=== PATIENT | male | born 1940 | race Caucasian/White ===

== ENCOUNTER → 2018-11-09 08:27 | Outpatient (CLI) | payer MEDICARE, OTHER, SELFPAY ==
[2018-11-09 10:49] LABS: Absolute Lymphocyte Count 1.72 X10^3/ul (0.83-4.51); Absolute Neutrophil Count 3.8 X10^3/uL (2.0-7.7); Basophil# 0.03 X10^3/uL; Basophil% 0.5 % (0-1); Eosinophil# 0.11 X10^3/uL; Eosinophils% 1.8 % (0-5); Hematocrit 43.7 % (40-54); Hemoglobin 14.6 g/dl (13.0-16.5); Lymphocyte # 1.72 X10^3/ul (4.0); Lymphocyte % 27.7 % (19-41); Mean Corp Hgb Conc 33.4 g/gl (32-36); Mean Corpuscular Volume 89.7 fL (80-94); Mean Platelet Vol. 9.9 fl (6.2-12.0); Monocyte# 0.54 X10^3/uL; Monocyte% 8.7 % (0-10); Neutrophil # 3.79 X10^3/uL (2.7-7.7); Neutrophil % 61.1 % (47-70); Platelet Count 221 K/mm3 (150-450); RBC Distribution Width CV 13.3 % (11.6-14.6); RBC Distribution Width SD 43.6 fl (35.1-43.9); Red Blood Count 4.87 M/mm3 (4.6-6.2); White Blood Count 6.2 K/mm3 (4.4-11.0)
[2018-11-09 10:50] LABS: POSITIVE COUNT NO; POSITIVE DIFFERENTIAL NO; POSITIVE MORPHOLOGY NO
[2018-11-09 10:57] LABS: Erythrocyte Sedimentation Rate 9 mm/hr (0-20)
[2018-11-09 11:07] LABS: Anion Gap 8 (5-15); BUN 19 mg/dL (7-18); Calcium,Total 9.2 mg/dL (8.5-10.1); Chloride 103 mmol/L (98-107); Creatinine, Serum 1.12 mg/dL (0.70-1.30); EST Glomerular Filtration Rate 68 mL/min (>60); Est Glom Filt Rate - Afr Amer 82 mL/min (>60); Glucose 153 mg/dL (74-106); Sodium Level 141 mmol/L (136-145)
[2018-11-09 11:08] LABS: Hemoglobin A1c 7.8 % (4.2-6.3)
--- OUTSIDE RECORDS SUMMARY | 2018-12-26 05:35 | XMS RPT_ITS ---
:1940 Author Organization OHIP Care Team Providers Name Role Phone Robin Kitchen Attending Unavailable Robin Kitchen Referring Unavailable Robin Kitchen Primary Care Unavailable PROBLEMS PROBLEMS No Problem Records FoundPROCEDURES PROCEDURES No Procedure Records FoundRESULTS RESULTS CBC W/DIFF, AUTOMATED Collected: 11/09/2018 Status: F Source: [place] 8:34 AM [facility] REPOSITORY TYPE CODE TESTS RESULT OUT OF RANGE REFERENCE UNITS LAB L100.1000 4.4-11.0 K/mm3 Normal WBC 6.2 LAB L100.1200 4.6-6.2 M/mm3 Normal RBC 4.87 LAB L100.1300 13.0-16.5 g/dl Normal HGB 14.6 LAB L100.1400 40-54 % Normal HCT 43.7 LAB L100.1500 80-94 fL Normal MCV 89.7 LAB L100.1600 27.0-32.0 pg Normal MCH 30.0 LAB L100.1700 32-36 g/gl Normal MCHC 33.4 LAB L100.1810 11.6-14.6 % Normal RDW CV 13.3 LAB L100.1820 35.1-43.9 fl Normal RDW SD 43.6 LAB L100.1900 150-450 K/mm3 Normal PLT 221 LAB L100.2000 6.2-12.0 fl Normal MPV 9.9 LAB L100.2100 47-70 % Normal NEUT% 61.1 LAB L100.2200 19-41 % Normal LY% 27.7 LAB L100.2300 0-10 % Normal MONO% 8.7 LAB L100.2400 0-5 % Normal EO% 1.8 LAB L100.2500 0-1 % Normal BASO% 0.5 LAB L100.2550 0.0-0.9 % Normal IM GRAN % 0.200 Result Comment: IG% - Immature Granulocytes (promyelocytes, myelocytes and metamyelocytes) > 1% indicates that a LEFT SHIFT is Present. LAB L100.2620 2.0-7.7 X10 3/uL Normal Absolute Neut 3.8 LAB L100.2720 0.83-4.51 X10 3/ul Normal Absolute Lymph 1.72 Performed By: #### L100.0100 #### [facility] [address] [place], [address] ERYTHROCYTE SED RATE Collected: 11/09/2018 Status: F Source: [place] 8:34 AM [facility] REPOSITORY TYPE CODE TESTS RESULT OUT OF RANGE REFERENCE UNITS LAB L102.0000 0-20 mm/hr Normal SED RATE 9 Performed By: #### L101.9900 #### [facility] [address] [place], [address] BASIC METABOLIC Collected: 11/09/2018 Status: F Source: [place] PROFILE (BMP) 8:34 AM [facility] REPOSITORY TYPE CODE TESTS RESULT OUT OF RANGE REFERENCE UNITS LAB L501.0100 74-106 mg/dL High GLU 153 Result Comment: Fasting Glucose result greater than or equal to 126 mg/dL suggests DIABETES MELLITUS per A.D.A. criteria. Please note revised GLUCOSE reference range effective 2018. LAB L501.1000 7-18 mg/dL High BUN 19 LAB L501.1100 0.70-1.30 mg/dL Normal CREAT,SERUM 1.12 Result Comment: The validity of the calculated GFR AND GFRAA in patients over 70 years has not been determined. Clinical correlation is essential. LAB L501.1110 >60 mL/min Normal EST GFR 68 Result Comment: Non- GFR Calc LAB L501.1115 >60 mL/min Normal EST GFR - AA 82 Result Comment: GFR Calc LAB L501.1300 10-20 RATIO Normal BUN/CRE 17.0 LAB L501.2200 8.5-10.1 mg/dL CA Normal 9.2 LAB L501.5300 136-145 mmol/L NA Normal 141 LAB L501.5600 3.5-5.1 mmol/L K Normal 4.0 LAB L501.5900 98-107 mmol/L CL Normal 103 LAB L501.6100 21.0-32.0 mmol/L Normal CO2 30.0 LAB L501.6200 5-15 Normal GAP 8 Performed By: #### L500.2500 #### [facility] [address] [place], [address] HEMOGLOBIN A1C Collected: 11/09/2018 Status: F Source: TRIVOLI 8:34 AM [facility] REPOSIT[facility] TYPE CODE TESTS RESULT OUT OF RANGE REFERENCE UNITS LAB L501.9985 4.2-6.3 % High HGB A1C 7.8 Performed By: #### L501.9985 #### [facility] [address] [place], [address] ALLERGIES ALLERGIES DATE TYPE / CODE NAME / CODE REACTION SEVERITY SOURCE 08/17/2017 Drug codeine/F006 Hives Unknown [facility] Allergy/4160 029984(Formerly [facility] [address](SNOMED M) Repository CT) ENCOUNTERS ENCOUNTERS ADMIT/DISCHARGE ACCOUNT ADMITTING ENCOUNTER LOCATION SOURCE NUMBER CLASS 11/09/2018 [id number] Ambulatory [facility] 5 [facility] ing:MTLAB Repository PAYERS PAYERS ENCOUNTER GUARANTOR PAYER SUBSCRIBER SOURCE 11/09/2018 UBALDO Moran Primary UBALDO Moran GWINDOB: [place] [id number] Insurance:[facility]IC[facility] [id number] BPolicy Number: [place], [place] [id number] Repository [id number]: 330) Date:2018-11-09 [phone] () 11/09/2018 Secondary UBALDO Moran GWINDOB: [place] Insurance:HUMANA [id number] Number: Repository [id number] Date:[id number] [address]GL: 11/09/2018 Tertiary NOT GIVENUNK [place] Insurance:SELF PAY [facility] Number: Effective Repository Date:2018-11-09
--- OUTSIDE RECORDS SUMMARY | 2018-12-26 06:36 | XMS RPT_ITS ---
:1940 Author Organization OHIP Care Team Providers Name Role Phone Robin Kitchen Attending Unavailable Robin Kitchen Referring Unavailable Robin Kitchen Primary Care Unavailable PROBLEMS PROBLEMS No Problem Records FoundPROCEDURES PROCEDURES No Procedure Records FoundRESULTS RESULTS CBC W/DIFF, AUTOMATED Collected: 11/09/2018 Status: F Source: RONNELL 8:34 AM [facility] REPOSITORY TYPE CODE TESTS RESULT OUT [...] Lymph 1.72 Performed By: #### L100.0100 #### [facility] [address] [place], [address] ERYTHROCYTE SED RATE Collected: 11/09/2018 Status: F Source: [place] 8:34 AM [facility] REPOSITORY TYPE CODE TESTS RESULT OUT OF RANGE REFERENCE UNITS LAB L102.0000 0-20 mm/hr Normal SED RATE 9 Performed By: #### L101.9900 #### [facility] [address] [place], [address] BASIC METABOLIC Collected: 11/09/2018 Status: F Source: [place] PROFILE (BMP) 8:34 AM [facility] REPOSITORY TYPE CODE TESTS RESULT OUT [...] GAP 8 Performed By: #### L500.2500 #### [facility] [address] [place], [address] HEMOGLOBIN A1C Collected: 11/09/2018 Status: F Source: [place] 8:34 AM [facility] REPOSITORY TYPE CODE TESTS RESULT OUT OF RANGE REFERENCE UNITS LAB L501.9985 4.2-6.3 % High HGB A1C 7.8 Performed By: #### L501.9985 #### [facility] [address] [place], [address] ALLERGIES ALLERGIES DATE TYPE / CODE NAME / CODE REACTION SEVERITY SOURCE 08/17/2017 Drug codeine/F006 Hives Unknown [facility] Allergy/4160 [id number]([facility] [address](SNOMED M) Repository CT) ENCOUNTERS ENCOUNTERS ADMIT/DISCHARGE ACCOUNT ADMITTING ENCOUNTER LOCATION SOURCE NUMBER CLASS 11/09/2018 [id number] Ambulatory [facility] 5 [facility] ing:MTLAB Repository PAYERS PAYERS ENCOUNTER GUARANTOR PAYER SUBSCRIBER SOURCE 11/09/2018 UBALDO Moran Primary UBALDO Moran GWINDOB: [place] [id number] Insurance:MEDICARE [id number] PART A BPolicy Number: [place], [place] [id number] Repository [id number]: 330) Date:2018-11-09 [phone] () 11/09/2018 Secondary UBALDO Moran GWINDOB: [place] Insurance:HUMANA [id number] Number: Repository [id number] Date:[id number] [address]TW: 11/09/2018 Tertiary NOT GIVENUNK [place] Insurance:SELF PAY [facility] Number: Effective Repository Date:2018-11-09
== END ==
PROVIDERS: Family Provider Family Medicine; PCP Family Medicine; Referring Provider Family Medicine; Visit Provider Family Medicine
DX: E11.9 Type 2 diabetes mellitus without complications (principal)
CPT/HCPCS: 36415; 80048; 83036; 85025; 85652

== ENCOUNTER → 2019-08-15 | Outpatient (CLI) | payer MEDICARE, OTHER, SELFPAY ==
[2019-08-15 10:45] LABS: Cholesterol 184 mg/dL (200); Glucose 153 mg/dL (74-106); High Density Lipoprotein 38 mg/dL; PSA,Total - Annual Screen 0.47 ng/mL (0.00-4.00); Triglycerides 201 mg/dL; Very Low Density Lipoprotein 40 mg/dL (5-40)
[2019-08-15 11:01] LABS: Hemoglobin A1c 8.1 % (4.2-6.3)
== END | disposition home or self-care (01) ==
LOC: MFPLAB 08:12
PROVIDERS: Family Provider Family Medicine; PCP Family Medicine; Visit Provider Family Medicine
DX: E11.9 Type 2 diabetes mellitus without complications (principal); Z12.5 Encounter for screening for malignant neoplasm of prostate
CPT/HCPCS: 36415; 80061; 82947; 83036; 84153; G0103

== ENCOUNTER → 2019-11-11 10:32 | Outpatient (CLI) | payer MEDICARE, OTHER, SELFPAY ==
[2017-08-19 12:33] VITALS: BMI 31.6
[2019-11-11 12:47] LABS: Anion Gap 7 (5-15); BUN 18 mg/dL (7-18); BUN/Creat Ratio 14.3 RATIO (10-20); Calcium,Total 9.1 mg/dL (8.5-10.1); Chloride 101 mmol/L (98-107); Creatinine, Serum 1.26 mg/dL (0.70-1.30); EST Glomerular Filtration Rate 59 mL/min (>60); Est Glom Filt Rate - Afr Amer 71 mL/min (>60); Glucose 228 mg/dL (74-106); Potassium 3.9 mmol/L (3.5-5.1); Sodium Level 135 mmol/L (136-145)
== END ==
PROVIDERS: Family Provider Family Medicine; PCP Family Medicine; Referring Provider Nurse Practitioner Adult Health; Visit Provider Nurse Practitioner Adult Health
DX: I10 Essential (primary) hypertension (principal)
CPT/HCPCS: 36415; 80048

== ENCOUNTER → 2020-01-04 08:03 | Outpatient (CLI) | payer MEDICARE, OTHER, SELFPAY ==
[2017-08-19 12:33] VITALS: BMI 31.6
[2020-01-04 08:11] LABS: Mucous, Urine 0 SEEN /hpf (<or=2+); Red Blood Cells-Urine 0 SEEN /hpf (0-5)
[2020-01-04 10:07] LABS: Absolute Lymphocyte Count 1.43 X10^3/uL (0.83-4.51); Absolute Neutrophil Count 3.3 X10^3/uL (2.0-7.7); Basophil# 0.05 X10^3/uL; Basophil% 0.9 % (0-1); Eosinophil# 0.08 X10^3/uL; Eosinophils% 1.5 % (0-5); Hematocrit 42.5 % (40-54); Hemoglobin 14.6 g/dL (13.0-16.5); Lymphocyte # 1.43 X10^3/ul (4.0); Lymphocyte % 26.4 % (19-41); Mean Corp Hgb Conc 34.4 g/dL (32-36); Mean Corpuscular Hgb 30.5 pg (27.0-32.0); Mean Corpuscular Volume 88.9 fL (80-94); Mean Platelet Vol. 9.7 fl (6.2-12.0); Monocyte# 0.49 X10^3/uL; Monocyte% 9.1 % (0-10); NRBC Flagged by Analyzer 0 % (0-5); Neutrophil # 3.32 X10^3/uL (2.7-7.7); Neutrophil % 61.4 % (47-70); Platelet Count 220 K/mm3 (150-450); RBC Distribution Width CV 12.7 % (11.6-14.6); RBC Distribution Width SD 41.4 fl (35.1-43.9); Red Blood Count 4.78 M/mm3 (4.6-6.2); White Blood Count 5.4 K/mm3 (4.4-11.0)
[2020-01-04 10:21] LABS: Color, Urine Yellow (Yellow); Glucose, Dipstick Normal (Normal); Ketone-Dipstick Negative (Negative); Leukocyte Esterase-Dipstick Negative /ul (Negative); Nitrite-Dipstick Negative (Negative); Occult Blood-Urine Negative /ul (Negative); Protein-Dipstick 30 mg/dl (Negative); Specific Gravity, Urine 1.015 (1.002-1.030); Urine Bilirubin Dipstick Negative (Negative); Urine Clarity Sl. Cloudy (Clear); Urine Urobilinogen Normal (Normal)
[2020-01-04 10:27] LABS: Vitamin D,25 Hydroxy 21.9 ng/mL (29.95-100.01)
[2020-01-04 10:31] LABS: ALB/GLOB Ratio 1.1 RATIO (0.9-2.4); AST(SGOT) 17 U/L (15-37); Alanine Aminotransfer ALT/SGPT 29 U/L (16-61); Albumin, Serum 3.7 g/dL (3.2-5.0); Alkaline Phosphatase 63 U/L (45-117); Anion Gap 5 (5-15); BUN 19 mg/dL (7-18); BUN/Creat Ratio 16.5 RATIO (10-20); Calcium,Total 9.2 mg/dL (8.5-10.1); Chloride 104 mmol/L (98-107); Cholesterol 166 mg/dL (200); Creatinine, Serum 1.15 mg/dL (0.70-1.30); EST Glomerular Filtration Rate 65 mL/min (>60); Est Glom Filt Rate - Afr Amer 79 mL/min (>60); Globulin 3.4 g/dL (2.2-4.2); Glucose 141 mg/dL (74-106); High Density Lipoprotein 34 mg/dL; Magnesium 2.1 mg/dL (1.6-2.6); Protein, Total 7.1 g/dL (6.4-8.2); Sodium Level 138 mmol/L (136-145); Thyroid Stim Hormone (TSH) 3.72 uIU/mL (0.358-3.74); Triglycerides 245 mg/dL; Uric Acid 6.9 mg/dL (3.5-7.2); Very Low Density Lipoprotein 49 mg/dL (5-40)
[2020-01-04 10:32] LABS: Bacteria RARE /hpf (None Seen); Squamous Epithelial Cells - UA 0-5 SEEN /hpf (0-5); White Blood Cells 0-5 SEEN /hpf (0-5)
[2020-01-04 10:35] LABS: Hemoglobin A1c 8.1 % (4.2-6.3)
[2020-01-04 11:33] LABS: Microalbumin:Creatinine Ratio 88.5 mg/g CRE (<30 mg/g CRE)
== END ==
PROVIDERS: PCP Family Medicine; Referring Provider Family Medicine; Visit Provider Family Medicine
DX: I10 Essential (primary) hypertension (principal); E11.9 Type 2 diabetes mellitus without complications; E55.9 Vitamin D deficiency, unspecified; M10.9 Gout, unspecified
CPT/HCPCS: 36415; 80053; 80061; 81001; 82043; 82306; 82570; 83036; 83735; 84443; 84550; 85025

== ENCOUNTER → 2020-01-25 08:22 | Outpatient (CLI) | payer MEDICARE, OTHER, SELFPAY ==
--- NOTE | 2020-01-25 08:24 | US_ITS ---
STUDY: THYROID ULTRASOUND REASON FOR EXAM: Male, 79 years old. THYROMEGALY TECHNIQUE: Ultrasound evaluation of the thyroid was performed with real-time and static churchill-scale imaging. COMPARISON: None. FINDINGS: RIGHT LOBE: The right lobe of the thyroid gland measures 4.4 x 1.7 x 1.3 cm. There is a heterogeneous echotexture. There are 3 complex cysts of the lower pole measuring 6 x 6 x 5 mm, 4 x 2 x 2 mm, and 3 x 4 x 2 mm respectively. LEFT LOBE: The left lobe of the thyroid gland measures 4.4 x 1.6 x 1.4 cm. There is a heterogeneous echotexture. There are 3 complex cysts of the mid and upper pole of the left thyroid lobe, measuring 7 x 6 x 5 mm, 2 x 2 x 2 mm, and 6 x 6 x 5 mm respectively. ISTHMUS: The isthmus measures 2 mm . The regional lymph nodes are normal. US/Thyroid IMPRESSION: Bilateral complex cysts as detailed above. Electronically Signed: Shemar Forrest MD at 17:00 EST , Service support ,
== END ==
PROVIDERS: PCP Family Medicine; Referring Provider Family Medicine; Visit Provider Family Medicine
DX: E01.0 Iodine-deficiency related diffuse (endemic) goiter (principal)
CPT/HCPCS: 76536

== ENCOUNTER → 2020-04-10 | Outpatient (CLI) | payer MEDICARE, OTHER, SELFPAY ==
[2017-08-19 12:33] VITALS: BMI 31.6
[2020-04-10 10:15] LABS: Vitamin D,25 Hydroxy 24.9 ng/mL
[2020-04-10 10:18] LABS: Hemoglobin A1c 7.3 % (4.2-6.3)
[2020-04-10 10:35] LABS: ALB/GLOB Ratio 1.1 RATIO (0.9-2.4); AST(SGOT) 17 U/L (15-37); Alanine Aminotransfer ALT/SGPT 26 U/L (16-61); Albumin, Serum 3.7 g/dL (3.2-5.0); Alkaline Phosphatase 60 U/L (45-117); Anion Gap 8 (5-15); BUN 26 mg/dL (7-18); BUN/Creat Ratio 22.4 RATIO (10-20); Calcium,Total 9.3 mg/dL (8.5-10.1); Chloride 108 mmol/L (98-107); Cholesterol 173 mg/dL (200); Creatinine, Serum 1.16 mg/dL (0.70-1.30); EST Glomerular Filtration Rate 65 mL/min (>60); Est Glom Filt Rate - Afr Amer 78 mL/min (>60); Globulin 3.4 g/dL (2.2-4.2); Glucose 138 mg/dL (74-106); High Density Lipoprotein 35 mg/dL; Potassium 3.6 mmol/L (3.5-5.1); Protein, Total 7.1 g/dL (6.4-8.2); Sodium Level 142 mmol/L (136-145); Triglycerides 222 mg/dL; Uric Acid 8.7 mg/dL (3.5-7.2); Very Low Density Lipoprotein 44 mg/dL (5-40)
[2020-04-10 10:51] LABS: Microalbumin,Random Urine 57.7 mg/L (NO RANGE EST.); Microalbumin:Creatinine Ratio 42.1 mg/g CRE (<30 mg/g CRE)
== END | disposition home or self-care (01) ==
LOC: MTLAB 07:37
PROVIDERS: PCP Family Medicine; Referring Provider Family Medicine; Visit Provider Family Medicine
DX: E11.9 Type 2 diabetes mellitus without complications (principal); M10.9 Gout, unspecified; R80.9 Proteinuria, unspecified; E55.9 Vitamin D deficiency, unspecified; I10 Essential (primary) hypertension
CPT/HCPCS: 36415; 80053; 80061; 82043; 82306; 82570; 83036; 84550

== ENCOUNTER 2020-07-18 08:37 | Day surgery (SDC) | payer MEDICARE, OTHER, SELFPAY ==
[2020-07-05 13:57] VITALS: BMI 31.6
[2020-07-18 08:50] LABS: Bedside Glucose 128 mg/dL (70-110)
[2020-07-18 08:51] VITALS: BP 157/95; PULSE 65; RESP 16; TEMP 36.4; BMI 28.7
[2020-07-18] MEDS: Lactated Ringers 1,000 ML 100 ML IV (08:51)
--- NOTE | 2020-07-18 09:43 | PCM.HP.BLA ---
History and Physical Date of Admission: 07/18/20 [facility] [address] [place] [address] OFFICE VISIT Date of Service: 07/05/20 MR#: [id number] Acct: [id number] Name: UBALDO HANEY Rep #: [id number] : 1940 Provider: Dr. Irineo Crandall MD Age/Sex: 80/M Location: [facility] Status: Signed Intake Vital Signs 07/05/20 BMI 31.6 07/05/20 Height 5 ft 10 in 07/05/20 Weight: 203 lb 7 oz 07/05/20 BMI 29.2 07/05/20 BP 117/73 07/05/20 Blood Pressure Location Rt brachial 07/05/20 Position Sitting 07/05/20 Respiration 20 H 07/05/20 Pulse 71 07/05/20 Temp 97.3 F L 07/05/20 Temp Source Temporal 07/05/20 Pulse Oximetry (%) 97 07/05/20 Oxygen Delivery Method room air Intake Visit Reasons: CSCOPE Chief Complaint: COLONOSCOPY/FAMILY HISTORY Diagnostic Cardiac Sonographer Required: No Is patient in pain?: No Allergies codeine Allergy (Verified 07/09/20 12:03) Hives Medications Metoprolol(XL)Succ [Toprol Xl (Beta Jossy)] 100 mg PO DAILY 09/21/16 [History Confirmed 07/09/20] Triamterene/Hydrochlorothiazid [Triamterene-Hctz 37.5-25 mg Tb] 1 tab PO DAILY 09/21/16 [History Confirmed 07/09/20] metFORMIN HCl [Glucophage] 1,000 mg PO BID 09/21/16 [History Confirmed 07/09/20] cholecalciferol (vitamin D3) 50 mcg (2,000 unit) capsule 50 mcg PO DAILY 07/05/20 [History Confirmed 07/09/20] lisinopril 20 mg tablet 20 mg PO DAILY 07/05/20 [History Confirmed 07/09/20] COUNT INCLUDES THE [facility] Medical History Diabetes (Acute) Multiple thyroid nodules (Acute) MVP (mitral valve prolapse) (Acute) Gout (Acute) Vitamin D deficiency (Acute) History of renal stone (Chronic) HTN (hypertension) (Chronic) History of revision of total replacement of left hip joint (Acute) Surgical History 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 Social History (Updated 07/18/20 @ 00:[address] Irineo Crandall MD) Smoking Status: Never smoker HPI HPI HPI: UBALDO HANEY, is a 80 M who presents to the office today for HPI HPI Surgical H&P: Yes HPI: UBALDO HANEY, is a 80 M who presents to the office today for Forearm evaluation for colonoscopy. Patient has never had a colonoscopy. He notes he has occasional diarrhea when he eats spicy foods he had a father who had colon cancer. He is not having any change in his bowel or bladder habits. ROS General General: No weight change, appetite, fatigue, colon cancer, breast cancer or weakness HEENT HEENT: No difficulty swallowing, eye injury, eye surgery, swollen glands or hoarseness Endo Endocrine: Yes diabetes mellitus; no thyroid disease, thyroid cancer, Hair loss, heat intolerance or cold intolerance Musc Musculoskeletal: Yes arthritis and gout; no back problems, rheumatoid arthritis or joint pain Cardio Cardiovascular: Yes atrial fibrillation and high blood pressure; no murmur, pacemaker, heart disease, heart attack, heart stent, palpitations, shortness of breat with exertion or chest pain Psych Psychiatric: No depression, anxiety or hearing voices Resp Respiratory: No shortness of breath, No sleep apnea, Yes cough, No COPD, No asthma, No emphysema, No wheezing Gastro Gastrointestinal: No abdominal pain, No nausea or vomiting, No diarrhea, No constipation, No blood in stool, No acid reflux, No hemorrhoids, No ulcers, No gallbladder problem, No black,tarry stools Mina Hematologic: No blood thinners, No blood disorders, No bleeding, No anemia, No blood clots Neuro Neurologic: No weakness Exam Const General: no acute distress, well developed, well hydrated Orientation: oriented to person, oriented to place, oriented to time [facility] Head: normocephalic, atraumatic Ears: external ears normal Mouth: moist mucous membranes Eyes Sclera: sclerae normal Pupils: normal by confrontation Neck Neck: no lymphadenopathy noted Neck mass: No Thyroid: thyroid normal, symmetrical Chest Chest palpation & inspection: normal inspection of the chest Resp Effort & Inspection: normal respiratory effort Auscultation: clear to auscultation bilaterally Percussion: percussion normal Cardio Rate: regular rate Rhythm: regular rhythm Heart Sounds: no murmurs GI Palpation: soft, no hepatosplenomegaly, no masses, nontender Rectal Exam: other Other: Rectal exam deferred. Extrem General: normal to inspection, no clubbing, cyanosis or edema Assessment & Plan Problems 1. Screening for colon cancer Z12.11 Plan I have discussed the above with the patient. I have offered the patient colonoscopy for evaluation. I have explained the risks/benefits of the procedure and described the procedure. I have discussed the risks with the patient, including but not limited to: infection, bleeding, perforation of the GI tract requiring emergency surgery, inability to complete the procedure, injury to any internal organs, complications of anesthesia, etc. - the patient understands and agrees to proceed. I have answered all the patient's questions to the patient's satisfaction and the patient has no further questions. The patient has been given instructions for the colon cleansing preparation. Orders Orders: Colonoscopy 07/05/20 Z12.11 Coding Level of Care Code Off vis,new,level 3 Diagnoses Screening for colon cancer Z12.11 COVID (Procedure Consent) Procedure Criteria Procedure Criteria: Yes Elective The surgeon/proceduralist and patient have discussed in detail the risk of exposure to and/or potential harm posed by the COVID-19 virus with having a surgery/procedure at this time versus the risk of? delaying the surgery/procedure. It is not possible to know either the risk of delaying the surgery or procedure or chance of getting an infection with perfect accuracy, but a joint decision was made between the patient and the surgeon/proceduralist ?to proceed at this time with the scheduled surgery/procedure as indicated on the consent form. 07/18/20 0046 <Electronically signed by Irineo Crandall MD> Date Irineo Viera Signature: Date (if applicable) CC: Dr. Robin Hinson MD ~ I have re-examined the patient. There are no clinical changes since date of exam.
[2020-07-18 10:10] VITALS: BP 123/81; BP 157/95; PULSE 67; RESP 16; TEMP 36.6; O2SAT 97
--- NOTE | 2020-07-18 10:12 | OP.CCLET_ITS ---
07/18/2020 Robin Hinson [address] [place] [address] Re : Colonoscopy procedure for John Art Dear Dr. Hinson This procedure was performed on Saturday, July 18, 2020. My impressions and recommendations are as follows: Impressions : - Diverticulosis in the sigmoid colon and in the descending colon. No specimens collected. - Non-bleeding internal hemorrhoids. - The examination was otherwise normal. Recommendations : - Discharge patient to home. - Resume previous diet. - Continue present medications. - Return to primary care physician (date not yet determined). - No repeat colonoscopy due to current age (66 years or older). My findings are described in the full procedure note, which is enclosed. If I can be of further assistance, please feel free to contact me at Doctor phone number(s): , Fax: [phone], Work: . Sincerely, MD Irineo Casey MD 07/18/2020 10:11:45 AM This report has been signed electronically.
--- NOTE | 2020-07-18 10:12 | OP.COLON_ITS ---
Patient Name: John Art Procedure Date: 07/18/2020 9:40 AM Date of : 1940 Age: 80 Procedure: Colonoscopy Indications: Screening for colorectal malignant neoplasm Providers: Irineo Crandall MD Referring MD: Robin Hinson Medicines: See the Anesthesia note for documentation of the administered medications Patient Profile: This is a 80 year old male. Refer to note in patient chart for documentation of history and physical. Last Colonoscopy: none. The patient's first colonoscopy is today. Complications: No immediate complications. Procedure: Pre-Anesthesia Assessment: - Prior to the procedure, a History and Physical was performed, and patient medications and allergies were reviewed. The patient's tolerance of previous anesthesia was also reviewed. The risks and benefits of the procedure and the sedation options and risks were discussed with the patient. All questions were answered, and informed consent was obtained. Prior Anticoagulants: The patient has taken no previous anticoagulant or antiplatelet agents. ASA Grade Assessment: II - A patient with mild systemic disease. After reviewing the risks and benefits, the patient was deemed in satisfactory condition to undergo the procedure. After I obtained informed consent, the scope was passed under direct vision. Throughout the procedure, the patient's blood pressure, pulse, and oxygen saturations were monitored continuously. The colonoscope was introduced through the anus and advanced to the cecum, identified by appendiceal orifice and ileocecal valve. The colonoscopy was performed without difficulty. The patient tolerated the procedure well. The quality of the bowel preparation was good. Scope In: 9:52:12 AM Scope Withdrawal Time 0 hours 6 minutes 36 seconds Scope Out: 10:04:21 AM Total Procedure Duration Time 0 hours 12 minutes 9 seconds Findings: Multiple small-mouthed diverticula were found in the sigmoid colon and descending colon. No biopsies or other specimens were collected for this exam. Non-bleeding internal hemorrhoids were found during retroflexion. The hemorrhoids were mild and small. The exam was otherwise without abnormality. Impression: - Diverticulosis in the sigmoid colon and in the descending colon. No specimens collected. - Non-bleeding internal hemorrhoids. - The examination was otherwise normal. Recommendation: - Discharge patient to home. - Resume previous diet. - Continue present medications. - Return to primary care physician (date not yet determined). - No repeat colonoscopy due to current age (66 years or older). Procedure Code(s): --- Professional --- G0121, Colorectal cancer screening; colonoscopy on individual not meeting criteria for high risk Diagnosis Code(s): --- Professional --- Z12.11, Encounter for screening for malignant neoplasm of colon K64.8, Other hemorrhoids K57.30, Diverticulosis of large intestine without perforation or abscess without bleeding CPT copyright 2017 [employer]. All rights reserved. The codes documented in this report are preliminary and upon remote coders review may be revised to meet current compliance requirements. MD Irineo Casey MD 07/18/2020 10:11:45 AM This report has been signed electronically. Number of Addenda: 0 Note Initiated On: 07/18/2020 9:40 AM
[2020-07-18 10:15] VITALS: BP 133/84; BP 157/95; PULSE 63; RESP 16; O2SAT 96
[2020-07-18 10:20] VITALS: BP 129/85; BP 157/95; PULSE 65; RESP 16; O2SAT 97
[2020-07-18 10:25] VITALS: BP 140/89; BP 157/95; PULSE 60; RESP 16; TEMP 36.2; O2SAT 99
[2020-07-18 10:43] VITALS: BP 157/95
== END 2020-07-18 10:59 | disposition home or self-care (01) ==
LOC: EN 08:38 → AC 08:40
PROVIDERS: Anesthesiology; PCP Family Medicine; Referring Provider Family Medicine; Visit Provider Surgery
PROC: 0DJD8ZZ Inspection of Lower Intestinal Tract, Via Natural or Artificial Opening Endoscopic (ICD-10-PCS; CPT 45378; principal; 2020-07-18 09:40)
DX: Z12.11 Encounter for screening for malignant neoplasm of colon (principal); K57.30 Diverticulosis of large intestine without perforation or abscess without bleeding; K64.8 Other hemorrhoids; E11.9 Type 2 diabetes mellitus without complications; I10 Essential (primary) hypertension; E55.9 Vitamin D deficiency, unspecified; Z80.0 Family history of malignant neoplasm of digestive organs; Z11.59 Encounter for screening for other viral diseases; Z79.84 Long term (current) use of oral hypoglycemic drugs; Z79.899 Other long term (current) drug therapy
CPT/HCPCS: G0105; 82962; 87635; 94799; J7120; J1610; J2405; U0003

== ENCOUNTER → 2020-12-04 12:42 | Outpatient (CLI) | payer MEDICARE, OTHER, SELFPAY ==
[2020-12-04 15:31] LABS: Absolute Lymphocyte Count 1.66 X10^3/uL (0.83-4.51); Absolute Neutrophil Count 5.4 X10^3/uL (2.0-7.7); Basophil# 0.06 X10^3/uL; Basophil% 0.8 % (0-1); Eosinophil# 0.13 X10^3/uL; Eosinophils% 1.7 % (0-5); Hematocrit 44.1 % (40-54); Hemoglobin 14.9 g/dL (13.0-16.5); Lymphocyte # 1.66 X10^3/ul (4.0); Lymphocyte % 21.4 % (19-41); Mean Corp Hgb Conc 33.8 g/dL (32-36); Mean Corpuscular Hgb 30.7 pg (27.0-32.0); Mean Corpuscular Volume 90.7 fL (80-94); Mean Platelet Vol. 9.8 fl (6.2-12.0); Monocyte# 0.54 X10^3/uL; NRBC Flagged by Analyzer 0 % (0-5); Neutrophil # 5.35 X10^3/uL (2.7-7.7); Neutrophil % 68.8 % (47-70); Platelet Count 228 K/mm3 (150-450); RBC Distribution Width CV 12.9 % (11.6-14.6); RBC Distribution Width SD 42.6 fl (35.1-43.9); Red Blood Count 4.86 M/mm3 (4.6-6.2); White Blood Count 7.8 K/mm3 (4.4-11.0)
[2020-12-04 15:51] LABS: ALB/GLOB Ratio 1.1 RATIO (0.9-2.4); AST(SGOT) 21 U/L (15-37); Alanine Aminotransfer ALT/SGPT 33 U/L (16-61); Albumin, Serum 3.7 g/dL (3.2-5.0); Alkaline Phosphatase 68 U/L (45-117); Anion Gap 10 (5-15); BUN 20 mg/dL (7-18); BUN/Creat Ratio 16.3 RATIO (10-20); Calcium,Total 9.1 mg/dL (8.5-10.1); Chloride 104 mmol/L (98-107); Creatinine, Serum 1.23 mg/dL (0.70-1.30); EST Glomerular Filtration Rate 60 mL/min (>60); Est Glom Filt Rate - Afr Amer 73 mL/min (>60); Globulin 3.5 g/dL (2.2-4.2); Glucose 116 mg/dL (74-106); Potassium 3.7 mmol/L (3.5-5.1); Protein, Total 7.2 g/dL (6.4-8.2); Sodium Level 140 mmol/L (136-145); Uric Acid 7.8 mg/dL (3.5-7.2); Vitamin D,25 Hydroxy 30.2 ng/mL
[2020-12-04 16:03] LABS: Microalbumin:Creatinine Ratio 77.7 mg/g CRE (<30 mg/g CRE)
[2020-12-04 16:04] LABS: Hemoglobin A1c 6.6 % (3.8-5.6)
== END ==
PROVIDERS: PCP Family Medicine; Referring Provider Family Medicine; Visit Provider Family Medicine
DX: E11.9 Type 2 diabetes mellitus without complications (principal); M10.9 Gout, unspecified; E55.9 Vitamin D deficiency, unspecified; I10 Essential (primary) hypertension; R80.9 Proteinuria, unspecified
CPT/HCPCS: 36415; 80053; 82043; 82306; 82570; 83036; 84550; 85025

== ENCOUNTER → 2020-12-12 10:20 | Outpatient (CLI) | payer MEDICARE, OTHER, SELFPAY ==
[2020-12-12 12:54] LABS: Anion Gap 7 (5-15); BUN 24 mg/dL (7-18); BUN/Creat Ratio 19.2 RATIO (10-20); Calcium,Total 9.6 mg/dL (8.5-10.1); Chloride 103 mmol/L (98-107); Creatinine, Serum 1.25 mg/dL (0.70-1.30); EST Glomerular Filtration Rate 59 mL/min (>60); Est Glom Filt Rate - Afr Amer 72 mL/min (>60); Glucose 124 mg/dL (74-106); Potassium 3.8 mmol/L (3.5-5.1); Sodium Level 137 mmol/L (136-145)
== END ==
PROVIDERS: PCP Family Medicine; Referring Provider Family Medicine; Visit Provider Family Medicine
DX: I10 Essential (primary) hypertension (principal)
CPT/HCPCS: 36415; 80048

== ENCOUNTER → 2021-03-07 16:04 | Outpatient (CLI) | payer MEDICARE, OTHER, SELFPAY ==
[2021-03-07 17:47] LABS: Absolute Lymphocyte Count 1.75 X10^3/uL (0.83-4.51); Absolute Neutrophil Count 3.5 X10^3/uL (2.0-7.7); Basophil# 0.07 X10^3/uL; Basophil% 1.2 % (0-1); Eosinophil# 0.11 X10^3/uL; Eosinophils% 1.9 % (0-5); Hematocrit 39.9 % (40-54); Hemoglobin 13.5 g/dL (13.0-16.5); Lymphocyte # 1.75 X10^3/ul (4.0); Lymphocyte % 29.5 % (19-41); Mean Corp Hgb Conc 33.8 g/dL (32-36); Mean Corpuscular Hgb 30.5 pg (27.0-32.0); Mean Corpuscular Volume 90.3 fL (80-94); Monocyte# 0.51 X10^3/uL; Monocyte% 8.6 % (0-10); NRBC Flagged by Analyzer 0 % (0-5); Neutrophil # 3.47 X10^3/uL (2.7-7.7); Neutrophil % 58.3 % (47-70); Platelet Count 203 K/mm3 (150-450); RBC Distribution Width CV 13.1 % (11.6-14.6); RBC Distribution Width SD 42.8 fl (35.1-43.9); Red Blood Count 4.42 M/mm3 (4.6-6.2); White Blood Count 5.9 K/mm3 (4.4-11.0)
[2021-03-07 18:23] LABS: Vitamin D,25 Hydroxy 37.1 ng/mL
[2021-03-07 18:28] LABS: ALB/GLOB Ratio 1.1 RATIO (0.9-2.4); AST(SGOT) 16 U/L (15-37); Alanine Aminotransfer ALT/SGPT 28 U/L (16-61); Albumin, Serum 3.7 g/dL (3.2-5.0); Alkaline Phosphatase 57 U/L (45-117); Anion Gap 7 (5-15); BUN 21 mg/dL (7-18); BUN/Creat Ratio 18.3 RATIO (10-20); Calcium,Total 9.3 mg/dL (8.5-10.1); Chloride 106 mmol/L (98-107); Cholesterol 183 mg/dL (200); Creatinine, Serum 1.15 mg/dL (0.70-1.30); EST Glomerular Filtration Rate 65 mL/min (>60); Est Glom Filt Rate - Afr Amer 79 mL/min (>60); Globulin 3.3 g/dL (2.2-4.2); Glucose 109 mg/dL (74-106); Hemoglobin A1c 6.8 % (3.8-5.6); High Density Lipoprotein 35 mg/dL; Potassium 3.4 mmol/L (3.5-5.1); Sodium Level 139 mmol/L (136-145); Triglycerides 365 mg/dL; Uric Acid 7.2 mg/dL (3.5-7.2); Very Low Density Lipoprotein 73 mg/dL (5-40)
[2021-03-07 18:38] LABS: Microalbumin:Creatinine Ratio 56.5 mg/g CRE (<30 mg/g CRE)
== END ==
PROVIDERS: PCP Family Medicine; Referring Provider Family Medicine; Visit Provider Family Medicine
DX: E11.9 Type 2 diabetes mellitus without complications (principal); I10 Essential (primary) hypertension; E55.9 Vitamin D deficiency, unspecified; M10.9 Gout, unspecified; R80.9 Proteinuria, unspecified
CPT/HCPCS: 36415; 80053; 80061; 82043; 82306; 82570; 83036; 84550; 85025

== ENCOUNTER → 2022-08-20 | Outpatient (CLI) | payer MEDICARE, OTHER, SELFPAY ==
[2022-08-20 07:25] LABS: Absolute Lymphocyte Count 1.68 X10^3/uL (0.83-4.51); Basophil# 0.06 X10^3/uL; Basophil% 0.9 % (0-1); Eosinophil# 0.14 X10^3/uL; Eosinophils% 2.2 % (0-5); Hematocrit 43.6 % (40-54); Hemoglobin 14.6 g/dL (13.0-16.5); Lymphocyte # 1.68 X10^3/ul (0.83-4.51); Mean Corp Hgb Conc 33.5 g/dL (32-36); Mean Corpuscular Hgb 30.4 pg (27.0-32.0); Mean Corpuscular Volume 90.8 fL (80-94); Mean Platelet Vol. 9.1 fl (6.2-12.0); Monocyte# 0.61 X10^3/uL; Monocyte% 9.4 % (0-10); NRBC Flagged by Analyzer 0 % (0-5); Neutrophil # 3.95 X10^3/uL (2.7-7.7); Neutrophil % 61.2 % (47-70); Platelet Count 207 K/mm3 (150-450); RBC Distribution Width CV 12.9 % (11.6-14.6); RBC Distribution Width SD 43.2 fl (35.1-43.9); White Blood Count 6.5 K/mm3 (4.4-11.0)
[2022-08-20 07:53] LABS: AST(SGOT) 20 U/L (15-37); Alanine Aminotransfer ALT/SGPT 33 U/L (16-61); Albumin, Serum 3.7 g/dL (3.2-5.0); Alkaline Phosphatase 62 U/L (45-117); Anion Gap 10 (5-15); BUN 19 mg/dL (7-18); BUN/Creat Ratio 16.1 RATIO (10-20); Calcium,Total 9.5 mg/dL (8.5-10.1); Chloride 102 mmol/L (98-107); Cholesterol 188 mg/dL (200); Creatinine, Serum 1.18 mg/dL (0.70-1.30); EST Glomerular Filtration Rate 63 mL/min (>60); Est Glom Filt Rate - Afr Amer 76 mL/min (>60); Globulin 3.6 g/dL (2.2-4.2); Glucose 154 mg/dL (74-106); High Density Lipoprotein 36 mg/dL; Potassium 3.8 mmol/L (3.5-5.1); Protein, Total 7.3 g/dL (6.4-8.2); Sodium Level 139 mmol/L (136-145); Triglycerides 343 mg/dL; Very Low Density Lipoprotein 69 mg/dL (5-40)
[2022-08-20 08:05] LABS: Microalbumin,Random Urine 79.9 mg/L (NO RANGE EST.); Microalbumin:Creatinine Ratio 93.2 mg/g CRE (<30 mg/g CRE)
== END | disposition home or self-care (01) ==
LOC: LAB 07:07
PROVIDERS: PCP Family Medicine; Referring Provider Family Medicine; Visit Provider Family Medicine
DX: I10 Essential (primary) hypertension (principal); E11.9 Type 2 diabetes mellitus without complications
CPT/HCPCS: 36415; 80053; 80061; 82043; 82570; 83036; 85025

== ENCOUNTER → 2023-04-09 | Outpatient (CLI) | payer MEDICARE, OTHER, SELFPAY ==
--- NOTE | 2023-04-09 16:04 | RAD_ITS ---
INDICATION: COUGH EXAMINATION/TECHNIQUE: X-RAY - XR Chest 2 Views COMPARISON: FINDINGS: LINES/DEVICES: None. LUNGS: Possible left perihilar infiltrate. Right upper lobe granuloma. No pneumothorax. MEDIASTINUM AND CARDIOVASCULAR STRUCTURES: Cardiac silhouette not enlarged. Central airways and mediastinal contour are unremarkable. BONES AND SOFT TISSUES: Degenerative vertebral changes. RAD/Chest PA and Lateral IMPRESSION: Possible left perihilar infiltrate. Electronically Signed: Matt Watson DO at 17:07 EDT Reading Location ID and State: [facility] / [place] Tel [phone], Service support ,
[2023-04-09 18:11] LABS: Absolute Lymphocyte Count 1.91 X10^3/uL (0.83-4.51); Absolute Neutrophil Count 9.8 X10^3/uL (2.0-7.7); Basophil% 0.7 % (0-1); Eosinophil# 0.23 X10^3/uL; Eosinophils% 1.7 % (0-5); Hematocrit 40.8 % (40-54); Hemoglobin 13.4 g/dL (13.0-16.5); Lymphocyte # 1.91 X10^3/ul (0.83-4.51); Lymphocyte % 13.9 % (19-41); Mean Corp Hgb Conc 32.8 g/dL (32-36); Mean Corpuscular Hgb 29.8 pg (27.0-32.0); Mean Corpuscular Volume 90.7 fL (80-94); Mean Platelet Vol. 8.4 fl (6.2-12.0); Monocyte# 1.36 X10^3/uL; Monocyte% 9.9 % (0-10); NRBC Flagged by Analyzer 0 % (0-5); Neutrophil # 9.76 X10^3/uL (2.7-7.7); Neutrophil % 71.2 % (47-70); Platelet Count 471 K/mm3 (150-450); RBC Distribution Width CV 12.1 % (11.6-14.6); RBC Distribution Width SD 39.9 fl (35.1-43.9); White Blood Count 13.7 K/mm3 (4.4-11.0)
[2023-04-09 18:33] LABS: ALB/GLOB Ratio 0.6 RATIO (0.9-2.4); AST(SGOT) 16 U/L (15-37); Alanine Aminotransfer ALT/SGPT 19 U/L (16-61); Albumin, Serum 2.9 g/dL (3.2-5.0); Alkaline Phosphatase 84 U/L (45-117); Anion Gap 6 (5-15); BUN 18 mg/dL (7-18); BUN/Creat Ratio 12.9 RATIO (10-20); Calcium,Total 9.5 mg/dL (8.5-10.1); Chloride 97 mmol/L (98-107); Creatinine, Serum 1.39 mg/dL (0.70-1.30); EST Glomerular Filtration Rate 52 mL/min (>60); Est Glom Filt Rate - Afr Amer 63 mL/min (>60); Globulin 5.2 g/dL (2.2-4.2); Glucose 182 mg/dL (74-106); Potassium 4.4 mmol/L (3.5-5.1); Protein, Total 8.1 g/dL (6.4-8.2); Sodium Level 131 mmol/L (136-145)
[2023-04-09 19:16] LABS: Hemoglobin A1c 8.7 % (3.8-5.6)
== END | disposition home or self-care (01) ==
PROVIDERS: PCP Family Medicine; Referring Provider Family Medicine; Visit Provider Family Medicine
DX: R05.9 Cough, unspecified (principal); E11.9 Type 2 diabetes mellitus without complications
CPT/HCPCS: 36415; 71046; 80053; 83036; 85025

== ENCOUNTER → 2023-04-13 | Outpatient (CLI) | payer MEDICARE, OTHER, SELFPAY ==
--- NOTE | 2023-04-13 15:26 | RAD_ITS ---
INDICATION: cough and sob x 2 + weeks EXAMINATION/TECHNIQUE: X-RAY - XR Chest 2 Views COMPARISON: Chest x-ray 04/09/2023. FINDINGS: LINES/DEVICES: None. LUNGS: Focal opacity left perihilar/infrahilar, is likely in the left lower lobe, and is similar but increased compared to prior study. No pneumothorax. MEDIASTINUM: Unremarkable. CARDIAC SILHOUETTE: Not enlarged. BONES AND SOFT TISSUES: Degenerative changes of the dorsal spine. RAD/Chest PA and Lateral IMPRESSION: Left perihilar likely lower lobe opacity may be consistent with pneumonia. Other process or mass is not entirely excluded. CT chest recommended for further evaluation. Electronically Signed: Shell Lujan MD at 2:48 EDT ,
[2023-04-13 18:06] LABS: Absolute Lymphocyte Count 1.73 X10^3/uL (0.83-4.51); Absolute Neutrophil Count 10.7 X10^3/uL (2.0-7.7); Basophil# 0.07 X10^3/uL; Basophil% 0.5 % (0-1); Eosinophil# 0.21 X10^3/uL; Eosinophils% 1.5 % (0-5); Hematocrit 41.3 % (40-54); Hemoglobin 13.6 g/dL (13.0-16.5); Lymphocyte # 1.73 X10^3/ul (0.83-4.51); Lymphocyte % 12.5 % (19-41); Mean Corp Hgb Conc 32.9 g/dL (32-36); Mean Corpuscular Hgb 29.3 pg (27.0-32.0); Mean Platelet Vol. 8.3 fl (6.2-12.0); Monocyte# 1.06 X10^3/uL; Monocyte% 7.6 % (0-10); NRBC Flagged by Analyzer 0 % (0-5); Neutrophil # 10.71 X10^3/uL (2.7-7.7); Neutrophil % 77.3 % (47-70); Platelet Count 489 K/mm3 (150-450); RBC Distribution Width CV 12.2 % (11.6-14.6); RBC Distribution Width SD 39.6 fl (35.1-43.9); Red Blood Count 4.64 M/mm3 (4.6-6.2); White Blood Count 13.9 K/mm3 (4.4-11.0)
[2023-04-13 18:28] LABS: BUN 18 mg/dL (7-18); Creatinine, Serum 1.24 mg/dL (0.70-1.30); Glucose 155 mg/dL (74-106)
[2023-04-13 18:29] LABS: ALB/GLOB Ratio 0.6 RATIO (0.9-2.4); AST(SGOT) 17 U/L (15-37); Alanine Aminotransfer ALT/SGPT 20 U/L (16-61); Albumin, Serum 2.9 g/dL (3.2-5.0); Alkaline Phosphatase 87 U/L (45-117); Anion Gap 9 (5-15); BUN/Creat Ratio 14.5 RATIO (10-20); Calcium,Total 9.6 mg/dL (8.5-10.1); Chloride 99 mmol/L (98-107); EST Glomerular Filtration Rate 60 mL/min (>60); Est Glom Filt Rate - Afr Amer 72 mL/min (>60); Globulin 5.2 g/dL (2.2-4.2); Potassium 3.9 mmol/L (3.5-5.1); Protein, Total 8.1 g/dL (6.4-8.2); Sodium Level 134 mmol/L (136-145)
== END | disposition home or self-care (01) ==
PROVIDERS: PCP Nurse Practitioner Family; Referring Provider Nurse Practitioner Family; Visit Provider Nurse Practitioner Family
DX: Z11.59 Encounter for screening for other viral diseases (principal); J18.9 Pneumonia, unspecified organism
CPT/HCPCS: 36415; 71046; 80053; 85025; 87635; U0005

== ENCOUNTER → 2023-04-15 | Outpatient (CLI) | payer MEDICARE, OTHER, SELFPAY ==
--- NOTE | 2023-04-15 13:17 | CT_ITS ---
STUDY: CT CHEST WITHOUT CONTRAST REASON FOR EXAM: Male, 83 years old. POSS PNEUMONIA, RADIATION DOSAGE (If Supplied By Facility): CTDIvol = ( 15.14 ) mGy, DLP = ( 521.92 ) mGycm TECHNIQUE: Transaxial imaging was performed without the administration of intravenous contrast material. Multiplanar coronal and sagittal images were reformatted. Individualized dose optimization techniques were used for this CT. COMPARISON: Comparison is made with prior chest radiograph dated April 13, 2023. FINDINGS: CHEST Small benign appearing bilateral axillary lymph nodes. Scattered calcified granulomas. There is a 5.1 cm x 4.6 cm x 4.6 cm mass in the superior medial segment of the left lower lobe. No air bronchograms are seen within it. Biopsy or PET scan is recommended for further evaluation. There is no demonstrated pleural abnormality. There are calcifications of the coronary arteries. There are multiple small lymph nodes within the mediastinum, which are normal in size and morphology most compatible with reactive lymph hyperplasia. Small calcified bilateral hilar lymph nodes. Normal unenhanced pulmonary arteries. There is atherosclerotic calcification of the aortic arch. There are multi-level degenerative changes of the thoracic spine. Heterogeneous appearance of the thoracic vertebrae. Correlation with the bone scan is recommended. There is no demonstrated abnormality of the visualized upper abdomen. CT/Chest without Contrast IMPRESSION: 5.1 cm x 4.69 x 4.6 cm mass in the superior medial aspect of the left lower lobe. A biopsy or PET scan is recommended. Heterogeneous appearance of the thoracic vertebrae. Correlation with the bone scan is recommended. Electronically Signed: Anthony Heaton MD at 14:35 EDT ,
== END | disposition home or self-care (01) ==
LOC: CT 13:16
PROVIDERS: PCP Family Medicine; Referring Provider Nurse Practitioner Family; Visit Provider Nurse Practitioner Family
DX: R05.9 Cough, unspecified (principal); R06.02 Shortness of breath
CPT/HCPCS: 71250

== ENCOUNTER → 2023-04-24 | Outpatient (CLI) | payer MEDICARE, OTHER, SELFPAY ==
[2023-04-24] VITALS (11 sets, daily range): BP systolic 100–131; BP diastolic 52–84; PULSE 61–72; RESP 15–22; TEMP 36.3; O2SAT 94–98; BMI 29.5
--- NOTE | 2023-04-24 08:49 | CT_ITS ---
PROCEDURE: CT-guided lung biopsy. DATE: 04/24/2023 INDICATION: 83-year-old male with left lower lobe mass. PHYSICIAN: Patrice Farias D.O. MEDICATIONS: 8 cc of 2% lidocaine was administered subcutaneously for local anesthesia. 1 mg of Versed and 50 mcg of fentanyl were utilized for sedation. Sedation start time: 10:11 AM. Sedation stop time: 10:56 AM. BIOPSY NEEDLE: 20 gauge Corvocet biopsy needle RADIATION DOSAGE (if supplied): Total exam DLP: 774.75. FINDINGS: The risks, benefits, and alternatives to the procedure were explained to the patient. The specific risks of bleeding, infection, and pneumothorax were detailed and accepted. Witnessed informed consent was obtained. The patient was placed in a prone slightly left oblique position in the CT scanner. An initial piece goods clerk CT was performed to evaluate for approach of the lesion. A suitable approach was selected. The skin surface was prepared in the usual sterile fashion. 8 cc of local lidocaine was injected utilizing a 25-gauge injection needle. . A 19-gauge introducer needle was then advanced into the mass utilizing CT fluoroscopic guidance. After confirmation of needle position within the mass, 4 core biopsy samples were obtained utilizing a 20-gauge Corvocet biopsy needle and given to on-site pathology. The needle was then withdrawn while injecting 4 to 5 cc of autologous blood patch which had been withdrawn from patient prior to exam. The patient tolerated the procedure well and remained in stable condition throughout the procedure. Immediate post procedural chest x-ray and 2 hours post procedural chest x-ray demonstrated no significant hemorrhage or sizable pneumothorax. The patient was discharged home in stable condition after [address]/Biopsy/Inj or Needle Placement IMPRESSION: Successful CT-guided biopsy of left lower lobe mass. Electronically Signed: Patrice Farias DO at 13:51 EDT ,
[2023-04-24 08:53] LABS: Platelet Count 379 K/mm3 (150-450)
[2023-04-24] MEDS: 0.9% Saline Lock 10 ML Syringe IV ×2 (09:00→10:09)
[2023-04-24 09:05] LABS: Prothrombin Time (Protime)PT. 13.4 SECONDS (11.7-14.9)
[2023-04-24 09:06] LABS: Partial Thromboplast Time 37.2 Seconds (24.1-36.2)
[2023-04-24] MEDS: Midazolam 2 MG/2 ML Syringe IV (10:11)
[2023-04-24] MEDS: fentaNYL 100 MCG/2 ML Ampul IV (10:17)
--- NOTE | 2023-04-24 10:30 | RAD_ITS ---
INDICATION: post lung biopsy -- Immediately post lung biopsy EXAMINATION/TECHNIQUE: X-RAY - XR Chest 2 Views COMPARISON: Chest radiograph from April 13, 2023. CT chest without contrast from April 15, 2023. FINDINGS: Support devices: None. There is redemonstration of a left infrahilar mass. No sizable pleural effusion. No sizable pneumothorax on inspiration/expiration imaging.. Heart size is stable. Bones and soft tissues are unchanged. RAD/Chest Insp/Exp 2 View IMPRESSION: No sizable pneumothorax or other acute findings on immediate post lung biopsy chest x-ray. Electronically Signed: Patrice Farias DO at 11:35 EDT ,
[2023-04-24] MEDS: Lidocaine 2% (20 ml mdv) 20 ML Vial INFILT (10:31)
--- NOTE | 2023-04-24 10:45 | ASPIGT_PTH ---
PATIENT: UBALDO HANEY LOC: CT U#:[id number] AGE/SX: 83/M ROOM: RE04/24/[address]: Dr. Camryn Edwards MD : 1940 BED: DIS: 04/24/2023 SPEC #: [id number] RECD: 04/24/23 11:12 STATUS: SANCHO MANINDER #: [id number] MARIO: 04/24/23 10:[address]: Camryn Edwards DEPT: SURGICAL PATHOLOGY RECD BY: Althea Larkin Tissues: Lung, NOS Procedures: FNA Specimen Adequacy Special Stain Group II Surgery Specimen Level IV Imprint (control) HEADER OPERATION: Left lung mass CT-guided core biopsy PRE-OP DIAGNOSIS: Left lung mass TISSUE SUBMITTED: Left lung mass 20-gauge core x4 MICROSCOPIC DIAGNOSIS Left lung mass, CT-guided core biopsy: Lung parenchymal tissue with fibrosis, marked chronic inflammation and minimal acute inflammation. Negative for malignancy. See comment. SJ:andrea 04/28/2023 COMMENT The specimen is evaluated at the time of biopsy by Dr. Henderson. Immediate Evaluation = Atypical cells noted. The specimen predominantly consists of fibrosis and inflammatory cell infiltrates consisting of lymphocytes, plasma cells, a few eosinophils and a few neutrophils. Re-biopsy is suggested if clinically indicated. Case has been reviewed in consultation with Dr. Torrez who concurs with the above diagnosis. IDC:AM MICROSCOPIC DESCRIPTION Slides are reviewed. GROSS DESCRIPTION Received in fixative is one container labeled with the patient's name and designated left lung mass. The specimen consists of multiple irregular fragments of cobos soft tissue that in aggregate measure 2.0 x 0.1 x 0.1 cm. The specimen is totally submitted in one cassette. Four touch imprints are prepared at the time of core biopsy. / BEVERLY:andrea 04/24/2023 TC:3 CPT: 25566, 85894
--- NOTE | 2023-04-24 12:30 | RAD_ITS ---
INDICATION: 2 hr post lung biopsy -- 2 hours post lung biopsy EXAMINATION/TECHNIQUE: X-RAY - XR Chest 2 Views COMPARISON: Chest radiograph from earlier same day. FINDINGS: Support devices: None. Aeration of lungs is unchanged with no sizable pleural effusion or pneumothorax. Heart size is stable. Bones and soft tissues are unchanged. RAD/Chest Insp/Exp 2 View IMPRESSION: No sizable pneumothorax 2 hours post lung biopsy. Electronically Signed: Patrice Farias DO at 13:35 EDT ,
== END | disposition home or self-care (01) ==
LOC: CT 08:37
PROVIDERS: Radiology Diagnostic Radiology; PCP Family Medicine; Referring Provider Family Medicine; Visit Provider Family Medicine
DX: J98.4 Other disorders of lung (principal); E11.9 Type 2 diabetes mellitus without complications; Z79.899 Other long term (current) drug therapy; Z79.84 Long term (current) use of oral hypoglycemic drugs; I10 Essential (primary) hypertension; M10.9 Gout, unspecified; M19.90 Unspecified osteoarthritis, unspecified site; E55.9 Vitamin D deficiency, unspecified; R06.02 Shortness of breath
CPT/HCPCS: 32408; 36415; 71046; 77012; 85049; 85610; 85730; 88172; 88305; 88313; 99156; 99157; J7050; A4216

== ENCOUNTER → 2023-06-15 | Outpatient (CLI) | payer MEDICARE, OTHER, SELFPAY ==
--- NOTE | 2023-06-15 06:54 | CT_ITS ---
INDICATION: Lung consolidation/mass EXAMINATION: CT CHEST WITHOUT CONTRAST - CT Chest W/O Contrast Injection TECHNIQUE: Helically acquired images were obtained of the chest. A radiation dose optimization technique was used for this scan. IV Contrast dosage and agent: None. RADIATION DOSAGE (If Supplied By Facility): CTDIvol = ( 18.00 ) mGy, DLP = ( 709.02 ) mGycm COMPARISON: April 15, 2023 INDINGS: LUNGS, PLEURA AND LARGE AIRWAYS: There is significant reduction in size in a 2.7 cm consolidation in the left lung base, postbiopsy. There is a stable 3 mm nodule in the lingula axial image 68. Additional 2 mm nodule is noted in the lingula axial image 76. A 3 mm nodule is noted in the left lower lobe axial image 73. A 2 mm nodule is noted in the left lower lobe axial image 69. A 2 mm nodule is noted in the left lower lobe axial image 58. A 2 mm nodule is noted in the left lower lobe axial image 40. A 4 mm nodule is noted in the left lower lobe axial image 46. A 2 mm nodule is noted in the right upper lobe axial image 41. Adjacent 1 to 2 mm nodules are noted in the right middle lobe axial image 63. A 3 mm nodule is noted in the right upper lobe posteriorly axial image 36. There are mild diffuse emphysematous changes in the lungs. No No pleural effusion or thickening. No pneumothorax.HYROID: No No thyroid lesions.EART AND PERICARDIUM: HeaHeart size is normal. No pericardial effusion.ORONARY ARTERIES: Coronary artery calcification there is mild coronary atherosclerosis.ESSELS: ThoThoracic aorta is not dilated.MEDIASTINUM AND BRUCE: No No mediastinal or hilar adenopathy. oEsophagus is unremarkable. No hiatal hernia.PPER ABDOMEN: No No acute pathology.BONES: There is increased sclerosis noted in the thoracic vertebral bodies diffusely as previously noted. CT/Chest without Contrast IMPRESSION: Significant interval reduction in size and consolidation in the left lower lobe as described. Persistent tiny nodules throughout both lungs. Persistent mild diffuse emphysematous changes in the lungs. Stable appearing sclerosis in the thoracic vertebral bodies. Bone scan can be obtained for further evaluation. Electronically Signed: Irineo Pendleton, at 8:30 EDT ,
== END | disposition home or self-care (01) ==
PROVIDERS: PCP Family Medicine; Referring Provider Internal Medicine Critical Care Medicine; Visit Provider Internal Medicine Critical Care Medicine
DX: R91.8 Other nonspecific abnormal finding of lung field (principal)
CPT/HCPCS: 71250

== ENCOUNTER → 2023-09-14 | Outpatient (CLI) | payer MEDICARE, OTHER, SELFPAY ==
[2023-09-14 10:27] LABS: ALB/GLOB Ratio 0.8 RATIO (0.9-2.4); AST(SGOT) 15 U/L (15-37); Alanine Aminotransfer ALT/SGPT 24 U/L (16-61); Albumin, Serum 3.3 g/dL (3.2-5.0); Alkaline Phosphatase 65 U/L (45-117); Anion Gap 6 (5-15); BUN 21 mg/dL (7-18); BUN/Creat Ratio 16.9 RATIO (10-20); Calcium,Total 9.1 mg/dL (8.5-10.1); Chloride 107 mmol/L (98-107); Cholesterol 177 mg/dL (200); Creatinine, Serum 1.24 mg/dL (0.70-1.30); EST Glomerular Filtration Rate 59 mL/min (>60); Est Glom Filt Rate - Afr Amer 72 mL/min (>60); Glucose 142 mg/dL (74-106); High Density Lipoprotein 36 mg/dL; Potassium 4.3 mmol/L (3.5-5.1); Protein, Total 7.3 g/dL (6.4-8.2); Sodium Level 140 mmol/L (136-145); Triglycerides 240 mg/dL; Very Low Density Lipoprotein 48 mg/dL (5-40)
[2023-09-14 10:37] LABS: Microalbumin:Creatinine Ratio 96.1 mg/g CRE (<30 mg/g CRE)
[2023-09-14 12:27] LABS: Absolute Neutrophil Count 3.9 X10^3/uL (2.0-7.7); Basophil# 0.09 X10^3/uL; Basophil% 1.3 % (0-1); Eosinophil# 0.27 X10^3/uL; Eosinophils% 3.9 % (0-5); Hematocrit 43.6 % (40-54); Hemoglobin 14.6 g/dL (13.0-16.5); Lymphocyte % 30.2 % (19-41); Mean Corp Hgb Conc 33.5 g/dL (32-36); Mean Corpuscular Hgb 30.3 pg (27.0-32.0); Mean Corpuscular Volume 90.5 fL (80-94); Mean Platelet Vol. 9.9 fl (6.2-12.0); Monocyte# 0.63 X10^3/uL; Monocyte% 9.1 % (0-10); NRBC Flagged by Analyzer 0 % (0-5); Neutrophil # 3.86 X10^3/uL (2.7-7.7); Neutrophil % 55.4 % (47-70); Platelet Count 223 K/mm3 (150-450); RBC Distribution Width CV 13.2 % (11.6-14.6); RBC Distribution Width SD 43.8 fl (35.1-43.9); Red Blood Count 4.82 M/mm3 (4.6-6.2)
== END | disposition home or self-care (01) ==
LOC: MTLAB 08:01
PROVIDERS: PCP Family Medicine; Referring Provider Family Medicine; Visit Provider Family Medicine
DX: I10 Essential (primary) hypertension (principal); E11.9 Type 2 diabetes mellitus without complications
CPT/HCPCS: 36415; 80053; 80061; 82043; 82570; 85025

== ENCOUNTER → 2024-02-01 | Outpatient (CLI) | payer MEDICARE, OTHER, SELFPAY ==
[2024-02-01 12:55] LABS: Erythrocyte Sedimentation Rate 11 mm/hr (0-20)
[2024-02-01 12:58] LABS: Absolute Lymphocyte Count 1.06 X10^3/uL (0.83-4.51); Absolute Neutrophil Count 8.7 X10^3/uL (2.0-7.7); Basophil# 0.04 X10^3/uL; Basophil% 0.4 % (0-1); Eosinophil# 0.31 X10^3/uL; Eosinophils% 2.9 % (0-5); Hematocrit 43.5 % (40-54); Hemoglobin 14.3 g/dL (13.0-16.5); Lymphocyte # 1.06 X10^3/ul (0.83-4.51); Lymphocyte % 9.8 % (19-41); Mean Corp Hgb Conc 32.9 g/dL (32-36); Mean Corpuscular Hgb 29.9 pg (27.0-32.0); Mean Platelet Vol. 9.7 fl (6.2-12.0); Monocyte# 0.65 X10^3/uL; NRBC Flagged by Analyzer 0 % (0-5); Neutrophil # 8.72 X10^3/uL (2.7-7.7); Neutrophil % 80.5 % (47-70); Platelet Count 227 K/mm3 (150-450); RBC Distribution Width CV 13.2 % (11.6-14.6); RBC Distribution Width SD 44.2 fl (35.1-43.9); Red Blood Count 4.78 M/mm3 (4.6-6.2); White Blood Count 10.8 K/mm3 (4.4-11.0)
[2024-02-01 13:24] LABS: AST(SGOT) 17 U/L (15-37); Alanine Aminotransfer ALT/SGPT 22 U/L (16-61); Albumin, Serum 3.5 g/dL (3.2-5.0); Alkaline Phosphatase 66 U/L (45-117); Bilirubin, Direct 0.29 mg/dL (0.00-0.30); Globulin 3.7 g/dL (2.2-4.2); Protein, Total 7.2 g/dL (6.4-8.2)
[2024-02-03 15:08] LABS: Lyme IgG P18 Ab Absent (.); Lyme IgG P23 Ab Absent (.); Lyme IgG P28 Ab Absent (.); Lyme IgG P30 Ab Absent (.); Lyme IgG P39 Ab Absent (.); Lyme IgG P41 Ab Present (.); Lyme IgG P45 Ab Absent (.); Lyme IgG P58 Ab Present (.); Lyme IgG P66 Ab Absent (.); Lyme IgG P93 Ab Present (.); Lyme IgG WB Interpretation Negative (.); Lyme IgM P23 Ab Absent (.); Lyme IgM P39 Ab Absent (.); Lyme IgM P41 Ab Absent (.); Lyme IgM WB Interpretation Negative (.)
== END | disposition home or self-care (01) ==
LOC: BFHLAB 10:27
PROVIDERS: PCP Family Medicine; Visit Provider Family Medicine
DX: R21 Rash and other nonspecific skin eruption (principal); R50.9 Fever, unspecified
CPT/HCPCS: 36415; 80076; 85025; 85652; 86140; 86617

== ENCOUNTER → 2024-02-05 | Outpatient (CLI) | payer MEDICARE, OTHER, SELFPAY ==
--- NOTE | 2024-02-05 09:00 | RAD_ITS ---
STUDY: X-RAY CHEST REASON FOR EXAM: Male, 83 years old. Pain. TECHNIQUE: Frontal and lateral views of the chest. COMPARISON: 04/24/2023 FINDINGS: Stable low volume inspiration. There is no demonstrated pleural abnormality. Mild cardiomegaly unchanged. Normal mediastinum and josseline. Normal visualized pulmonary arteries. Stable aortic tortuosity with calcification. Diffuse moderate thoracic spondylosis unchanged. Normal visualized ribs, clavicles, and shoulders. No abnormality of the visualized soft tissue structures of the upper abdomen. RAD/Chest PA and Lateral IMPRESSION: Stable chest with no acute or active cardiopulmonary disease. Electronically Signed: Augustus Abarca MD at 14:16 EST ,
== END | disposition home or self-care (01) ==
LOC: MTRAD 08:46
PROVIDERS: PCP Family Medicine; Referring Provider Family Medicine; Visit Provider Family Medicine
DX: R91.8 Other nonspecific abnormal finding of lung field (principal)
CPT/HCPCS: 71046

== ENCOUNTER → 2024-02-17 | Outpatient (CLI) | payer MEDICARE, OTHER, SELFPAY ==
[2024-02-19 16:09] LABS: Lyme IgG P18 Ab Absent (.); Lyme IgG P23 Ab Absent (.); Lyme IgG P28 Ab Absent (.); Lyme IgG P30 Ab Absent (.); Lyme IgG P39 Ab Absent (.); Lyme IgG P41 Ab Absent (.); Lyme IgG P45 Ab Absent (.); Lyme IgG P58 Ab Present (.); Lyme IgG P66 Ab Absent (.); Lyme IgG P93 Ab Absent (.); Lyme IgG WB Interpretation Negative (.); Lyme IgM P23 Ab Absent (.); Lyme IgM P39 Ab Absent (.); Lyme IgM P41 Ab Absent (.); Lyme IgM WB Interpretation Negative (.)
== END | disposition home or self-care (01) ==
LOC: LAB 09:51
PROVIDERS: PCP Family Medicine; Referring Provider Family Medicine; Visit Provider Family Medicine
DX: M06.4 Inflammatory polyarthropathy (principal)
CPT/HCPCS: 36415; 86140; 86617

== ENCOUNTER → 2024-02-23 | Outpatient (CLI) | payer MEDICARE, OTHER, SELFPAY ==
[2024-02-23 12:29] LABS: Erythrocyte Sedimentation Rate 31 mm/hr (0-20)
[2024-02-23 15:18] LABS: AST(SGOT) 11 U/L (15-37); Alanine Aminotransfer ALT/SGPT 22 U/L (16-61); Albumin, Serum 3.1 g/dL (3.2-5.0); Alkaline Phosphatase 77 U/L (45-117); Anion Gap 9 (5-15); BUN 25 mg/dL (7-18); BUN/Creat Ratio 18.7 RATIO (10-20); Bilirubin, Direct 0.18 mg/dL (0.00-0.30); Calcium,Total 9.8 mg/dL (8.5-10.1); Chloride 101 mmol/L (98-107); Creatinine, Serum 1.34 mg/dL (0.70-1.30); EST Glomerular Filtration Rate 54 mL/min (>60); Est Glom Filt Rate - Afr Amer 66 mL/min (>60); Globulin 4.2 g/dL (2.2-4.2); Glucose 203 mg/dL (74-106); Potassium 4.3 mmol/L (3.5-5.1); Protein, Total 7.3 g/dL (6.4-8.2); Rheumatoid Factor < 10.0 IU/mL (<15); Sodium Level 137 mmol/L (136-145); Uric Acid 6.4 mg/dL (3.5-7.2)
[2024-02-24 12:09] LABS: CCP IgG Antibodies 2 units (0-19)
[2024-02-24 14:10] LABS: ANTINUCLEAR ANTIBODIES DIRECT Positive (Negative); Anti-Centromere B Ab <0.2 AI (0.0-0.9); Anti-Chromatin <0.2 AI (0.0-0.9); Anti-Jo <0.2 AI (0.0-0.9); Anti-Scleroderma-70 AB <0.2 AI (0.0-0.9); Anti-dsDNA Ab 10 IU/mL (0-9); RNP Ab <0.2 AI (0.0-0.9); SJOGREN'S Anti-SS-A test < 0.2 AI (0.0-0.9); SJOGREN'S Anti-SS-B test < 0.2 AI (0.0-0.9); Smith Ab <0.2 AI (0.0-0.9)
== END | disposition home or self-care (01) ==
LOC: MTLAB 10:40
PROVIDERS: PCP Family Medicine; Referring Provider Family Medicine; Visit Provider Family Medicine
DX: M06.4 Inflammatory polyarthropathy (principal); N18.31 Chronic kidney disease, stage 3a; M10.9 Gout, unspecified; R17 Unspecified jaundice
CPT/HCPCS: 36415; 80048; 80076; 84550; 85652; 86038; 86140; 86200; 86225; 86235; 86431

== ENCOUNTER → 2025-07-28 | Outpatient (CLI) | payer MEDICARE, OTHER, SELFPAY ==
--- OUTSIDE RECORDS SUMMARY | 2025-07-28 08:38 | XMS RPT_ITS | CCD ---
Author Organization [facility] Care Team Providers Care R Developer Name Role Phone Unavailable Primary Care Provider UnavailDr. Camryn Olguin Primary Care Provider Dr. Camryn Edwards Referring Provider Dr. Jeffery Noonan Attending Provider Dr. Camryn Edwards Primary Care Provider Dr. Camryn Edwards Referring Provider Dr. Jeffery Noonan Attending Provider [phone] Camryn Edwards Primary Care Unavailable Sree Hooker Attending Unavailable Camryn Edwards Attending Unavailable Camryn Edwards Primary Care Unavailable Allergies Allergy Classification Reported Allergen(s) Allergy Type Date of Onset Reaction(s) Facility (10 sources) Codeine Drug Allergy 07-18-2020 [facility] (1 source) Codeine Drug Allergy 06-17-2023 [facility] Repository Medications Current Medications Medication Drug Class(es) Dates Sig (Normalized) Sig (Original) cholecalciferol 0.05 mg oral capsule (10 sources) Vitamin D Start: 07-05-2020 take 50 ug by mouth once daily Cholecalciferol (Vitamin D3) Active 50 MCG PO DAILY July 05, 2020 12:00am hydroCHLOROthiazide 25 mg / triamterene 37.5 mg oral tablet (10 sources) Potassium-sparin g Diuretic, Thiazide Diuretic Start: 09-21-2016 take 1 tablet by mouth once daily Triamterene-Hydroch lorothiazid Active 1 TABLET PO DAILY September 21, 2016 12:00am lisinopril 20 mg oral tablet (10 sources) Angiotensin Converting Enzyme Inhibitor Start: 07-05-2020 take 20 mg by mouth once daily Lisinopril Active 20 MG PO DAILY July 05, 2020 12:00am 24 hr metoprolol succinate 100 mg extended release oral tablet (10 sources) beta-Adrenergic Jossy Start: 09-21-2016 take 100 mg by mouth once daily Metoprolol Succinate Active 100 MG PO DAILY September 21, 2016 12:00am Completed/Discontinued Medications Medication Drug Class(es) Dates Sig (Normalized) Sig (Original) acetaminophen 500 mg oral tablet (20 sources) Start: 08-21-2017 End: 07-05-2020 take 1000 mg by mouth every eight hours Acetaminophen Discontinued 1000 MG PO EVERY 8 HOURS August 21, 2017 12:00am July 05, 2020 1:55pm Start: 08-10-2017 End: 08-21-2017 Acetaminophen (Tylenol) 325 MG tablet Discontinued 325 MG PO NEEDED August 10, 2017 12:00am August 21, 2017 7:08am docusate sodium 50 mg / sennosides, penitentiary 8.6 mg oral tablet (10 sources) Start: 08-21-2017 End: 07-05-2020 Sennosides-Docusate Sodium Discontinued 2 TABLET PO TWICE A DAY August 21, 2017 12:00am July 05, 2020 1:54pm Take until first bowel movement then as needed doxycycline monohydrate 100 mg oral capsule (10 sources) Tetracycline-c lass Drug Start: 08-21-2017 End: 07-05-2020 take 100 mg by mouth twice daily Doxycycline Monohydrate Discontinued 100 MG PO TWICE A DAY August 21, 2017 12:00am July 05, 2020 1:55pm ferrous sulfate 325 mg oral tablet (10 sources) Start: 08-22-2017 End: 07-05-2020 take 325 mg by mouth twice daily at mealtime Ferrous Sulfate Discontinued 325 MG PO TWICE DAILY WITH MEALS August 22, 2017 12:00am July 05, 2020 1:55pm folic acid 1 mg oral tablet (10 sources) Start: 08-22-2017 End: 07-05-2020 take 1 mg by mouth twice daily at mealtime Folic Acid Discontinued 1 MG PO TWICE DAILY WITH MEALS August 22, 2017 12:00am July 05, 2020 1:55pm metFORMIN hydrochloride 500 mg oral tablet (20 sources) Biguanide Start: 08-10-2017 End: 07-05-2020 take 500 mg by mouth at bedtime Metformin Discontinued 500 MG PO AT BEDTIME August 10, 2017 12:00am July 05, 2020 1:55pm Start: 09-21-2016 take 1000 mg by mout h twice daily Metformin Active 1000 MG PO TWICE A DAY September 21, 2016 12:00am oxyCODONE hydrochloride 5 mg oral tablet (10 sources) Opioid Agonist Start: 08-21-2017 End: 07-05-2020 take 5-10 mg by mouth every four hours as needed Oxycodone Discontinued 5 - 10 MG PO EVERY 4 HOURS NEEDED 80 August 21, 2017 12:00am July 05, 2020 1:54pm rivaroxaban 10 mg oral tablet (10 sources) Factor Xa Inhibitor Start: 08-21-2017 End: 07-05-2020 take 10 mg by mouth once daily Rivaroxaban Discontinued 10 MG PO DAILY@0600 August 21, 2017 12:00am July 05, 2020 1:54pm Problems Problem Classification Problem Date Documented Da te Episodic/Chronic Calculus of urinary tract (10 sources) History of calculus of kidney; Translations: [Personal history of urinary calculi] 07-05-2020 Episodic Diabetes mellitus without complication (10 sources) Diabetes mellitus; Translations: [Type 2 diabetes mellitus without complications] 07-18-2020 Chronic Essential hypertension (10 sources) Hypertensive disorder; Translations: [Essential (primary) hypertension] 07-05-2020 Chronic Gout and other crystal arthropathies (10 sources) Gout; Translations: [Gout, unspecified] 07-18-2020 Chronic Heart valve disorders (10 sources) Mitral valve prolapse; Translations: [Nonrheumatic mitral (valve) prolapse] 07-18-2020 Chronic Nutritional deficiencies (10 sources) Vitamin D deficiency; Translations: [Vitamin D deficiency, unspecified] 07-18-2020 Chronic Other lower respiratory disease (6 sources) Lung mass; Translations: [Other nonspecific abnormal finding of lung field] 05-04-2023 Episodic Other lower respiratory disease (3 sources) Other nonspecific abnormal finding of lung field; Translations: [Swelling, mass, or lump in chest] 05-04-2023 Episodic Thyroid disorders (10 sources) Multinodular goiter; Translations: [Nontoxic multinodular goiter] 07-18-2020 Chronic Results Test Name Value Interpretation Reference Range Facility Basophil percentageOrdered B y: Ino Morris on 02-23-2024 Basophil percentage < 10.0 IU/mL <15 [facility] Bilirubin [Mass/Vol] 0.80 mg/dL 0.20-1.00 [facility] Comment on above: For patients on eltr ombopag therapy, use of Dimension [place] TBIL is not recommended. Chloride [Moles/Vol] 101 mmol/L 98-107 [facility] Glucose [Mass/Vol] 203 mg/dL 74-[address] [facility] Comment on above: Glucose result great er than or equal to 200 mg/dLsuggests DIABETES MELLITUS per A.D.A. criteria. Potassium [Moles/Vol] 4.3 mmol/L 3.5-5.1 [facility] Protein [Mass/Vol] 7.3 g/dL 6.4-8.[address] [facility] Sodium [Moles/Vol] 137 mmol/L 136-[address] [facility] Direct bilirubinOrdered By: Ino Morris on 02-23-2024 Bilirubin.direct [Mass/Vol] 0.18 mg/dL 0.00-0.30 [facility] Erythrocyte sedimentation ra teOrdered By: Ino Morris on 02-23-2024 ESR (Bld) [Velocity] 31 mm/h 0-20 [facility] Laboratory - Chemistry and C hemistry - challengeOrdered By: Ino Morris on 02-23-2024 ALP [Catalytic activity/Vol] 77 U/L 45-117 [facility] ALT [Catalytic activity/Vol] 22 U/L 16-61 [facility] CO2 [Moles/Vol] 27.0 mmol/L 21.0-32.0 [facility] Globulin (S) [Mass/Vol] 4.2 g/dL 2.2-4.2 [facility] Urea nitrogen/Creatinine [Mass ratio] 18.7 mg/mg 10-20 [facility] No Panel InformationOrdered By: Ino Morris on 02-23-2024 Anti-Nuclear Antibody Screen Positive Negative [facility] C-Reactive Protein Extended Range 92.80 mg/L 0.0-3.0 [facility] Comment on above: C-Reactive Protein ( CRP) provides useful information for thediagnosis, therapy and monitoring of inflammatory processesand associated diseases. For the evaluation of Relative Riskfor Cardiovascular Disease, a High Sensitivity CRP (HSCRP)should be ordered. Centromere B Antibody <0.2 AI 0.0-0.9 [facility] Estimated GFR (MDRD) Amer 66 mL/min >60 [facility] Comment on above: GFR Calc Estimated GFR (MDRD) Non-Af Amer 54 mL/min >60 [facility] Comment on above: Non- GFR Calc NATA-1 Antibody <0.2 AI 0.0-0.9 [facility] TOWER HOIST OPERATOR Antibody <0.2 AI 0.0-0.9 [facility] SM Antibody <0.2 AI 0.0-0.9 [facility] SS-A/Ro IgG Antibody < 0.2 AI 0.0-0.9 [facility] SS-B/La IgG Antibody < 0.2 AI 0.0-0.9 [facility] Serum DNA double strand anti body assay (units/volume)Ordered By: Ino Morris on 02-23-2024 DNA double strand Ab Qn (S) 10 [IU]/mL 0-9 [facility] Comment on above: Negative <5 Equivoca l 5 - 9 Positive >9 Serum Scl-70 antibody assay (units/volume)Ordered By: Ino Morris on 02-23-2024 SCL-70 extractable nuclear Ab Qn (S) <0.2 AI 0.0-0.9 [facility] Serum cyclic citrullinated p eptide IgG antibody assay (units/volume)Ordered By: Ino Morris on 02-23-2024 Cyclic citrullinated peptide IgG Qn 2 units 0-19 [facility] Comment on above: Negative <20 Weak po sitive 20 - 39 Moderate positive 40 - 59 Strong positive >59Performed at: - [facility] [id number] Director: Alejo Oscar PhD, Phone: [phone] Serum or plasma calcium loretta urement (mass/volume)Ordered By: Ino Morris on 02-23-2024 Calcium [Mass/Vol] 9.8 mg/dL 8.5-10.[address] [facility] Serum or plasma creatinine m easurement (mass/volume)Ordered By: Ino Morris on 02-23-2024 Creatinine [Mass/Vol] 1.34 mg/dL 0.70-1.30 [facility] Comment on above: The validity of the calculated GFR & GFRAA in patients over 70 years has not been determined. Clinical correlation is essential. Serum or plasma urea nitroge n measurement (mass/volume)Ordered By: Ino Morris on 02-23-2024 Urea nitrogen [Mass/Vol] 25 mg/dL 7-18 [facility] Serum or plasma uric acid me asurement (mass/volume)Ordered By: Ino Morris on 02-23-2024 Urate [Mass/Vol] 6.4 mg/dL 3.5-7.2 [facility] Comment on above: The drugs N-Acetylcy steine and Metamizole may falsely depress this assay. Thin prep Papanicolaou smear with manual screeningOrdered By: Ino Morris on 02-23-2024 Thin prep Papanicolaou smear with manual screening 3.1 g/dL 3.2-5.0 [facility] Thin prep Papanicolaou smear with manual screening 11 U/L 15-37 [facility] Thin prep Papanicolaou smear with manual screening 9 5-15 [facility] No Panel InformationOrdered By: Ino Morris on 02-17-2024 C-Reactive Protein Extended Range 34.00 mg/L 0.0-3.0 [facility] Comment on above: C-Reactive Protein ( CRP) provides useful information for thediagnosis, therapy and monitoring of inflammatory processesand associated diseases. For the evaluation of Relative Riskfor Cardiovascular Disease, a High Sensitivity CRP (HSCRP)should be ordered. Lyme Disease IgG Ab 18 kDa Band Absent . [facility] Lyme Disease IgG Ab 23 kDa Band Absent . [facility] Lyme Disease IgG Ab 28 kDa Band Absent . [facility] Lyme Disease IgG Ab 30 kDa Band Absent . [facility] Lyme Disease IgG Ab 39 kDa Band Absent . [facility] Lyme Disease IgG Ab 41 kDa Band Absent . [facility] Lyme Disease IgG Ab 45 kDa Band Absent . [facility] Lyme Disease IgG Ab 58 kDa Band Present . [facility] Lyme Disease IgG Ab 66 kDa Band Absent . [facility] Lyme Disease IgG Ab 93 kDa Band Absent . [facility] Lyme Disease IgG [place] Interp Negative . [facility] Comment on above: Positive: 5 of the f [facility] Borrelia-specific bands: 18,23,28,30,39,41,45,58, 66, and 93. Negative: No bands or banding patterns which do not meet positive criteria. Lyme Disease IgM Ab ([place]ot) Negative . [facility] Comment on above: Note: An equivocal o r positive EIA result followed by anegative Line Blot result is considered NEGATIVE. Anequivocal or positive EIA result followed by a positiveLine Blot is considered POSITIVE by the CDC.Positive: 2 of the following bands: 23,39 or 41Negative: No bands or banding patterns which do not meetpositive criteria.Criteria for positivity are those recommended byCDC/ASTPHLD. p23=Osp C, [id number]:Sera from individuals with the following may cross reactin the Lyme Line Blot assays: other spirochetal diseases(periodontal disease, leptospirosis, relapsing fever, yaws,and pinta); connective autoimmune (Rheumatoid Arthritis andSystemic Lupus Erythematosus and also individuals withAntinuclear Antibody); other infections (Rusty MountainSpotted Fever; Jolanta-Willis Virus, and Cytomegalovirus).Please Note: Lyme immunoblot alone is not recommended forthe diagnosis of Lyme disease. Current guidelines recommendthe use of a two-tiered approach to Lyme serology testingto improve the sensitivity and specificity of testing.[facility] offers test code 655013 Lyme Disease Serology withReflex to aid in the diagnosis of Lyme Disease.Performed at: [address] [id number] Director: Nils Grace MD, Phone: [phone] Lyme Disease IgM Ab 23 kDa Band Absent . [facility] Lyme Disease IgM Ab 39 kDa Band Absent . [facility] Lyme Disease IgM Ab 41 kDa Band Absent . [facility] Absolute lymphocyte countOrd ered By: Camryn Edwards on 02-01-2024 Lymphocytes Auto (Unsp spec) [#/Vol] 1.06 10*3/uL 0.83-4.51 [facility] Automated lymphocyte count a s percentage of total leukocytesOrdered By: Camryn Edwards on 02-01-2024 Lymphocytes/100 WBC Auto (Unsp spec) 9.8 % 19-41 [facility] Basophil percentageOrdered B y: Camryn Edwards on 02-01-2024 Basophils/100 WBC (Bld) 0.4 % 0-1 [facility] Bilirubin [Mass/Vol] 1.40 mg/dL 0.20-1.00 [facility] Comment on above: For patients on eltr ombopag therapy, use of Dimension [place] TBIL is not recommended. Eosinophils/100 WBC (Bld) 2.9 % 0-5 [facility] Hemoglobin (Bld) [Mass/Vol] 14.3 g/dL 13.0-16.5 [facility] Monocytes/100 WBC (Bld) 6.0 % 0-10 [facility] Neutrophils (Bld) [#/Vol] 8.7 10*3/uL 2.0-7.7 [facility] Neutrophils/100 WBC (Bld) 80.5 % 47-70 [facility] Protein [Mass/Vol] 7.2 g/dL 6.4-8.[address] [facility] WBC (Bld) [#/Vol] 10.8 10*3/uL 4.4-11.0 [facility] Determination of erythrocyte mean corpuscular volume (MCV)Ordered By: Camryn Edwards on 02-01-2024 MCV (RBC) [Entitic vol] 91.0 fL 80-94 [facility] Direct bilirubinOrdered By: Camryn Edwards on 02-01-2024 Bilirubin.direct [Mass/Vol] 0.29 mg/dL 0.00-0.30 [facility] Erythrocyte distribution wid th ratioOrdered By: Camryn Edwards on 02-01-2024 Erythrocyte distribution width (RBC) [Ratio] 13.2 % 11.6-14.6 [facility] Erythrocyte distribution wid th standard deviationOrdered By: Camryn Edwards on 02-01-2024 Erythrocyte distribution width (RBC) [Entitic vol] 44.2 fL 35.1-43.9 [facility] Erythrocyte sedimentation ra teOrdered By: Camryn Edwards on 02-01-2024 ESR (Bld) [Velocity] 11 mm/h 0-20 [facility] Hematocrit Auto (Bld) [Volum e fraction]Ordered By: Camryn Edwards on 02-01-2024 Hematocrit (Bld) [Volume fraction] 43.5 % 40-54 [facility] Immature granulocytes/100 WB C Auto (Bld)Ordered By: Camryn Edwards on 02-01-2024 Immature granulocytes/100 WBC (Bld) 0.400 % 0.0-0.9 [facility] Comment on above: IG% - Immature Granu locytes (promyelocytes, myelocytes and metamyelocytes) > 1% indicates that a LEFT SHIFT is Present. Laboratory - Chemistry and C hemistry - challengeOrdered By: Camryn Edwards on 02-01-2024 ALP [Catalytic activity/Vol] 66 U/L 45-117 [facility] ALT [Catalytic activity/Vol] 22 U/L 16-61 [facility] Globulin (S) [Mass/Vol] 3.7 g/dL 2.2-4.2 [facility] Laboratory - Hematology and Cell countsOrdered By: Camryn Edwards on 02-01-2024 MCH (RBC) [Entitic mass] 29.9 pg 27.0-32.0 [facility] MCHC (RBC) [Mass/Vol] 32.9 g/dL 32-36 [facility] Nucleated RBC/100 WBC (Bld) [Ratio] 0 % 0-5 [facility] Platelet mean volume (Bld) [Entitic vol] 9.7 fL 6.2-12.0 [facility] Platelets (Bld) [#/Vol] 227 10*3/uL 150-450 [facility] No Panel InformationOrdered By: Camryn Edwards on 02-01-2024 C-Reactive Protein Extended Range 91.80 mg/L 0.0-3.0 [facility] Comment on above: C-Reactive Protein ( CRP) provides useful information for thediagnosis, therapy and monitoring of inflammatory processesand associated diseases. For the evaluation of Relative Riskfor Cardiovascular Disease, a High Sensitivity CRP (HSCRP)should be ordered. Lyme Disease IgG Ab 18 kDa Band Absent . [facility] Lyme Disease IgG Ab 23 kDa Band Absent . [facility] Lyme Disease IgG Ab 28 kDa Band Absent . [facility] Lyme Disease IgG Ab 30 kDa Band Absent . [facility] Lyme Disease IgG Ab 39 kDa Band Absent . [facility] Lyme Disease IgG Ab 41 kDa Band Present . [facility] Lyme Disease IgG Ab 45 kDa Band Absent . [facility] Lyme Disease IgG Ab 58 kDa Band Present . [facility] Lyme Disease IgG Ab 66 kDa Band Absent . [facility] Lyme Disease IgG Ab 93 kDa Band Present . [facility] Lyme Disease IgG [place] Interp Negative . [facility] Comment on above: Positive: 5 of the f ollowing Borrelia-specific bands: 18,23,28,30,39,41,45,58, 66, and 93. Negative: No bands or banding patterns which do not meet positive criteria. Lyme Disease IgM Ab ([place]ot) Negative . [facility] Comment on above: Note: An equivocal o r positive EIA result followed by anegative Line Blot result is considered NEGATIVE. Anequivocal or positive EIA result followed by a positiveLine Blot is considered POSITIVE by the CDC.Positive: 2 of the following bands: 23,39 or 41Negative: No bands or banding patterns which do not meetpositive criteria.Criteria for positivity are those recommended byCDC/ASTPHLD. p23=Osp C, [id number]:Sera from individuals with the following may cross reactin the Lyme Line Blot assays: other spirochetal diseases(periodontal disease, leptospirosis, relapsing fever, yaws,and pinta); connective autoimmune (Rheumatoid Arthritis andSystemic Lupus Erythematosus and also individuals withAntinuclear Antibody); other infections (Rusty MountainSpotted Fever; Jolanta-Willis Virus, and Cytomegalovirus).Please Note: Lyme immunoblot alone is not recommended forthe diagnosis of Lyme disease. Current guidelines recommendthe use of a two-tiered approach to Lyme serology testingto improve the sensitivity and specificity of testing.[facility] offers test code [id number] Lyme Disease Serology withReflex to aid in the diagnosis of Lyme Disease.Performed at: [address] [id number] Director: Nils Grace MD, Phone: [phone] Lyme Disease IgM Ab 23 kDa Band Absent . [facility] Lyme Disease IgM Ab 39 kDa Band Absent . [facility] Lyme Disease IgM Ab 41 kDa Band Absent . [facility] RBC Auto (Bld) [#/Vol]Ordere d By: Camryn Edwards on 02-01-2024 RBC (Bld) [#/Vol] 4.78 10*6/uL 4.6-6.2 [facility] Thin prep Papanicolaou smear with manual screeningOrdered By: Camryn Edwards on 02-01-2024 Thin prep Papanicolaou smear with manual screening 3.5 g/dL 3.2-5.0 [facility] Thin prep Papanicolaou smear with manual screening 17 U/L 15-37 [facility] Absolute lymphocyte countOrd ered By: Camryn Edwards on 09-14-2023 Lymphocytes Auto (Unsp spec) [#/Vol] 2.10 10*3/uL 0.83-4.51 [facility] Basophil percentageOrdered B y: Camryn Edwards on 09-14-2023 Basophils/100 WBC (Bld) 1.3 % 0-1 [facility] Bilirubin [Mass/Vol] 0.50 mg/dL 0.20-1.00 [facility] Comment on above: For patients on eltr ombopag therapy, use of Dimension [place] TBIL is not recommended. Chloride [Moles/Vol] 107 mmol/L 98-107 [facility] Cholesterol [Mass/Vol] 177 mg/dL <200 [facility] Comment on above: <200 mg/dL Desirable 200-240 mg/dL Borderline >240 mg/dL High Risk Eosinophils/100 WBC (Bld) 3.9 % 0-5 [facility] Glucose [Mass/Vol] 142 mg/dL 74-[address] [facility] Comment on above: Fasting Glucose resu lt greater than or equal to 126 mg/dL suggests DIABETES MELLITUS per A.D.A. criteria. Neutrophils (Bld) [#/Vol] 3.9 10*3/uL 2.0-7.7 [facility] Neutrophils/100 WBC (Bld) 55.4 % 47-70 [facility] Potassium [Moles/Vol] 4.3 mmol/L 3.5-5.1 [facility] Protein [Mass/Vol] 7.3 g/dL 6.4-8.[address] [facility] Sodium [Moles/Vol] 140 mmol/L 136-[address] [facility] Triglyceride [Mass/Vol] 240 mg/dL <199 [facility] Comment on above: The drugs N-Acetylcy steine and Metamizole may falsely depress this assay.Serum Triglycerides Reference Interval Normal <150 mg/dL Borderline high 150 - 199 mg/dL High 200 - 499 mg/dL Very High > or = 500 mg/dL WBC (Bld) [#/Vol] 7.0 10*3/uL 4.4-11.[address] [facility] Blood erythrocytes count (nu mber/volume)Ordered By: Camryn Edwards on 09-14-2023 RBC (Bld) [#/Vol] 4.82 10*6/uL 4.6-6.2 [facility] Blood hemoglobin measurement (mass/volume)Ordered By: aCmryn Edwards on 09-14-2023 Hemoglobin (Bld) [Mass/Vol] 14.6 g/dL 13.0-16.5 [facility] Blood lymphocytes/100 leukoc ytesOrdered By: Camryn Edwards on 09-14-2023 Lymphocytes/100 WBC (Bld) 30.2 % 19-41 [facility] Blood monocytes/100 leukocyt esOrdered By: Camryn Edwards on 09-14-2023 Monocytes/100 WBC (Bld) 9.1 % 0-10 [facility] Blood platelet mean volumeOr dered By: Camryn Edwards on 09-14-2023 Platelet mean volume (Bld) [Entitic vol] 9.9 fL 6.2-12.0 [facility] Determination of erythrocyte mean corpuscular volume (MCV)Ordered By: Camryn Edwards on 09-14-2023 MCV (RBC) [Entitic vol] 90.5 fL 80-94 [facility] Hematocrit Auto (Bld) [Volum e fraction]Ordered By: Camryn Edwards on 09-14-2023 Hematocrit (Bld) [Volume fraction] 43.6 % 40-54 [facility] Laboratory - Chemistry and C hemistry - challengeOrdered By: Camryn Edwards on 09-14-2023 ALP [Catalytic activity/Vol] 65 U/L 45-117 [facility] ALT [Catalytic activity/Vol] 24 U/L 16-61 [facility] CO2 [Moles/Vol] 27.0 mmol/L 21.0-32.0 [facility] Globulin (S) [Mass/Vol] 4.0 g/dL 2.2-4.2 [facility] Urea nitrogen/Creatinine [Mass ratio] 16.9 mg/mg 10-20 [facility] Laboratory - Hematology and Cell countsOrdered By: Camryn Edwards on 09-14-2023 Erythrocyte distribution width (RBC) [Entitic vol] 43.8 fL 35.1-43.9 [facility] Erythrocyte distribution width (RBC) [Ratio] 13.2 % 11.6-14.6 [facility] Immature granulocytes/100 WBC (Bld) 0.100 % 0.0-0.9 [facility] Comment on above: IG% - Immature Granu locytes (promyelocytes, myelocytes and metamyelocytes) > 1% indicates that a LEFT SHIFT is Present. MCH (RBC) [Entitic mass] 30.3 pg 27.0-32.0 [facility] Nucleated RBC/100 WBC (Bld) [Ratio] 0 % 0-5 [facility] MCHC Auto (RBC) [Mass/Vol]Or dered By: Camryn Edwards on 09-14-2023 MCHC (RBC) [Mass/Vol] 33.5 g/dL 32-36 [facility] No Panel InformationOrdered By: Camryn Edwards on 09-14-2023 Estimated GFR (MDRD) Amer 72 mL/min >60 [facility] Comment on above: GFR Calc Estimated GFR (MDRD) Non-Af Amer 59 mL/min >60 [facility] Comment on above: Non- GFR Calc Urine Microalbumin/Creatinine Ratio 96.1 mg/g CRE <30 [facility] Platelets bldOrdered By: Alban Edwards on 09-14-2023 Platelets (Bld) [#/Vol] 223 10*3/uL 150-450 [facility] Serum or plasma albumin loretta urement (mass/volume)Ordered By: Camryn Edwards on 09-14-2023 Albumin [Mass/Vol] 3.3 g/dL 3.2-5.[address] [facility] Serum or plasma albumin/glob ulin mass ratioOrdered By: Camryn Edwards on 09-14-2023 Albumin/Globulin [Mass ratio] 0.8 {ratio} 0.9-2.4 [facility] Serum or plasma calcium loretta urement (mass/volume)Ordered By: Camryn Edwards on 09-14-2023 Calcium [Mass/Vol] 9.1 mg/dL 8.5-10.[address] [facility] Serum or plasma cholesterol in HDL measurement (mass/volume)Ordered By: Camryn Edwards on 09-14-2023 Cholesterol in HDL [Mass/Vol] 36 mg/dL >40 [facility] Comment on above: The drugs N-Acetylcy steine and Metamizole may falsely depress this assay. Reference Range HDL <40 mg/dL Low HDL Cholesterol HDL >or= 60 mg/dL High HDL Cholesterol Serum or plasma cholesterol in VLDL measurement (mass/volume)Ordered By: Camryn Edwards on 09-14-2023 Cholesterol in VLDL [Mass/Vol] 48 mg/dL 5-40 [facility] Serum or plasma creatinine m easurement (mass/volume)Ordered By: Camryn Edwards on 09-14-2023 Creatinine [Mass/Vol] 1.24 mg/dL 0.70-1.30 [facility] Comment on above: The validity of the calculated GFR & GFRAA in patients over 70 years has not been determined. Clinical correlation is essential. Serum or plasma low density lipoprotein (LDL) cholesterol measurement (mass/volume)Ordered By: Camryn Edwards on 09-14-2023 Cholesterol in LDL [Mass/Vol] 93 mg/dL 0-130 [facility] Serum or plasma urea nitroge n measurement (mass/volume)Ordered By: Camryn Edwards on 09-14-2023 Urea nitrogen [Mass/Vol] 21 mg/dL 7-18 [facility] Thin prep Papanicolaou smear with manual screeningOrdered By: Camryn Edwards on 09-14-2023 Thin prep Papanicolaou smear with manual screening 15 U/L 15-37 [facility] Thin prep Papanicolaou smear with manual screening 6 5-15 [facility] Thin prep Papanicolaou smear with manual screening 57.0 mg/L NO RANGE EST. [facility] Urine creatinine measurement (mass/volume)Ordered By: Camryn Edwards on 09-14-2023 Creatinine (U) [Mass/Vol] 59.30 mg/dL NO RANGE EST. [facility] INR in Blood by Coagulation assayOrdered By: Dr. Heaton on 04-24-2023 INR Coag (Bld) [Relative time] 1.0 {INR} [facility] - CoagulationOrde red By: Dr. Heaton on 04-24-2023 aPTT Coag (Bld) [Time] 37.2 s 24.1-36.2 [facility] PT Coag (PPP) [Time] 13.4 s 11.7-14.9 [facility] Platelets bldOrdered By: Dr. Heaton on 04-24-2023 Platelets (Bld) [#/Vol] 379 10*3/uL 150-450 [facility] Absolute lymphocyte countOrd ered By: Christy Montes on 04-13-2023 Lymphocytes Auto (Unsp spec) [#/Vol] 1.73 10*3/uL 0.83-4.51 [facility] Basophil percentageOrdered B y: Christy Montes on 04-13-2023 Basophils/100 WBC (Bld) 0.5 % 0-1 [facility] Bilirubin [Mass/Vol] 0.40 mg/dL 0.20-1.00 [facility] Comment on above: For patients on eltr ombopag therapy, use of Dim[place] TBIL is not recommended. Chloride [Moles/Vol] 99 mmol/L 98-107 [facility] Eosinophils/100 WBC (Bld) 1.5 % 0-5 [facility] Glucose [Mass/Vol] 155 mg/dL 74-[address] [facility] Comment on above: Fasting Glucose resu lt greater than or equal to 126 mg/dL suggests DIABETES MELLITUS per A.D.A. criteria. Neutrophils (Bld) [#/Vol] 10.7 10*3/uL 2.0-7.7 [facility] Neutrophils/100 WBC (Bld) 77.3 % 47-70 [facility] Potassium [Moles/Vol] 3.9 mmol/L 3.5-5.1 [facility] Protein [Mass/Vol] 8.1 g/dL 6.4-8.[address] [facility] Sodium [Moles/Vol] 134 mmol/L 136-[address] [facility] WBC (Bld) [#/Vol] 13.9 10*3/uL 4.4-11.0 [facility] Blood erythrocytes count (nu mber/volume)Ordered By: Christy Montes on 04-13-2023 RBC (Bld) [#/Vol] 4.64 10*6/uL 4.6-6.2 [facility] Blood hemoglobin measurement (mass/volume)Ordered By: Christy Montes on 04-13-2023 Hemoglobin (Bld) [Mass/Vol] 13.6 g/dL 13.0-16.5 [facility] Blood lymphocytes/100 leukoc ytesOrdered By: Cleveland Simon on 04-13-2023 Lymphocytes/100 WBC (Bld) 12.5 % 19-41 [facility] Blood monocytes/100 leukocyt esOrdered By: Cleveland Simon on 04-13-2023 Monocytes/100 WBC (Bld) 7.6 % 0-10 [facility] Blood platelet mean volumeOr dered By: Christy Montes on 04-13-2023 Platelet mean volume (Bld) [Entitic vol] 8.3 fL 6.2-12.0 [facility] COVID-19 virus antigen assay Ordered By: Christy Montes on 04-13-2023 SARS-CoV-2 (COVID-19) Ag IA.rapid Ql (Resp) Not detected Not Detect [facility] Comment on above: Normal Reference Ran ge: Not DetectedMethod:(RT-PCR) real-time reverse transcriptase PCRLuminex HAIR Instrument*The Food and Drug Administration (FDA) has issued an Emergency Use Authorization (EAU) for the HAIR SARS-CoV-2 Assay for the rapid detection of the virus that causes COVID-19. This test has been validated, but the FDAs independent review of this validation is pending.*Negative results do not preclude infection and should not be used as the sole basis for treatment or patient management. Optimum specimen types and timing for peak viral levels during infections caused by SARS-CoV-2 have not been determined. Collection of multiple specimens from the same patient may be necessary to detect the virus. The possibility of a false negative result should be considered if the patient has clinical presentation or has had recent exposure. Determination of erythrocyte mean corpuscular volume (MCV)Ordered By: Christy Montes on 04-13-2023 MCV (RBC) [Entitic vol] 89.0 fL 80-94 [facility] Hematocrit Auto (Bld) [Volum e fraction]Ordered By: Christy Montes on 04-13-2023 Hematocrit (Bld) [Volume fraction] 41.3 % 40-54 [facility] - Chemistry and C hemistry - challengeOrdered By: [facility] ALP [Catalytic activity/Vol] 87 U/L 45-117 [facility] ALT [Catalytic activity/Vol] 20 U/L 16-61 [facility] CO2 [Moles/Vol] 26.0 mmol/L 21.0-32.0 [facility] Globulin (S) [Mass/Vol] 5.2 g/dL 2.2-4.2 [facility] Urea nitrogen/Creatinine [Mass ratio] 14.5 mg/mg 10-20 [facility] - Hematology and Cell countsOrdered By: Cleveland Simon on 04-13-2023 Erythrocyte distribution width (RBC) [Entitic vol] 39.6 fL 35.1-43.9 [facility] Erythrocyte distribution width (RBC) [Ratio] 12.2 % 11.6-14.6 [facility] Immature granulocytes/100 WBC (Bld) 0.600 % 0.0-0.9 [facility] Comment on above: IG% - Immature Granu locytes (promyelocytes, myelocytes and metamyelocytes) > 1% indicates that a LEFT SHIFT is Present. MCH (RBC) [Entitic mass] 29.3 pg 27.0-32.0 [facility] Nucleated RBC/100 WBC (Bld) [Ratio] 0 % 0-5 [facility] MCHC Auto (RBC) [Mass/Vol]Or dered By: Christy Montes on 04-13-2023 MCHC (RBC) [Mass/Vol] 32.9 g/dL 32-36 [facility] No Panel InformationOrdered By: Christy Montes on 04-13-2023 Estimated GFR (MDRD) Amer 72 mL/min >60 [facility] Comment on above: GFR Calc Estimated GFR (MDRD) Non-Af Amer 60 mL/min >60 [facility] Comment on above: Non- GFR Calc Platelets bldOrdered By: Aaron Montes on 04-13-2023 Platelets (Bld) [#/Vol] 489 10*3/uL 150-450 [facility] Serum or plasma albumin loretta urement (mass/volume)Ordered By: Christy Montes on 04-13-2023 Albumin [Mass/Vol] 2.9 g/dL 3.2-5.[address] [facility] Serum or plasma albumin/glob ulin mass ratioOrdered By: Christy Montes on 04-13-2023 Albumin/Globulin [Mass ratio] 0.6 {ratio} 0.9-2.4 [facility] Serum or plasma calcium loretta urement (mass/volume)Ordered By: Christy Montes on 04-13-2023 Calcium [Mass/Vol] 9.6 mg/dL 8.5-10.[address] [facility] Serum or plasma creatinine m easurement (mass/volume)Ordered By: Christy Montes on 04-13-2023 Creatinine [Mass/Vol] 1.24 mg/dL 0.70-1.30 [facility] Comment on above: The validity of the calculated GFR & GFRAA in patients over 70 years has not been determined. Clinical correlation is essential. Serum or plasma urea nitroge n measurement (mass/volume)Ordered By: Christy Montes on 04-13-2023 Urea nitrogen [Mass/Vol] 18 mg/dL 7-18 [facility] Thin prep Papanicolaou smear with manual screeningOrdered By: Christy Montes on 04-13-2023 Thin prep Papanicolaou smear with manual screening 17 U/L 15-37 [facility] Thin prep Papanicolaou smear with manual screening 9 5-15 [facility] Absolute lymphocyte countOrd ered By: Dr. Edwards on 04-09-2023 Lymphocytes Auto (Unsp spec) [#/Vol] 1.91 10*3/uL 0.83-4.51 [facility] Basophil percentageOrdered B y: Dr. Edwards on 04-09-2023 Basophils/100 WBC (Bld) 0.7 % 0-1 [facility] Bilirubin [Mass/Vol] 0.40 mg/dL 0.20-1.00 [facility] Comment on above: For patients on eltr ombopag therapy, use of [place] TBIL is not recommended. Chloride [Moles/Vol] 97 mmol/L 98-107 [facility] Eosinophils/100 WBC (Bld) 1.7 % 0-5 [facility] Glucose [Mass/Vol] 182 mg/dL 74-[address] [facility] Comment on above: Fasting Glucose resu lt greater than or equal to 126 mg/dL suggests DIABETES MELLITUS per A.D.A. criteria. Neutrophils (Bld) [#/Vol] 9.8 10*3/uL 2.0-7.7 [facility] Neutrophils/100 WBC (Bld) 71.2 % 47-70 [facility] Potassium [Moles/Vol] 4.4 mmol/L 3.5-5.1 [facility] Protein [Mass/Vol] 8.1 g/dL 6.4-8.[address] [facility] Sodium [Moles/Vol] 131 mmol/L 136-[address] [facility] WBC (Bld) [#/Vol] 13.7 10*3/uL 4.4-11.0 [facility] Blood erythrocytes count (nu mber/volume)Ordered By: Dr. Edwards on 04-09-2023 RBC (Bld) [#/Vol] 4.50 10*6/uL 4.6-6.2 [facility] Blood hemoglobin measurement (mass/volume)Ordered By: Dr. Edwards on 04-09-2023 Hemoglobin (Bld) [Mass/Vol] 13.4 g/dL 13.0-16.5 [facility] Blood lymphocytes/100 leukoc ytesOrdered By: Dr. Edwards on 04-09-2023 Lymphocytes/100 WBC (Bld) 13.9 % 19-41 [facility] Blood monocytes/100 leukocyt esOrdered By: Dr. Edwards on 04-09-2023 Monocytes/100 WBC (Bld) 9.9 % 0-10 [facility] Blood platelet mean volumeOr dered By: Dr. Edwards on 04-09-2023 Platelet mean volume (Bld) [Entitic vol] 8.4 fL 6.2-12.0 [facility] Determination of erythrocyte mean corpuscular volume (MCV)Ordered By: Dr. Edwards on 04-09-2023 MCV (RBC) [Entitic vol] 90.7 fL 80-94 [facility] Hematocrit Auto (Bld) [Volum e fraction]Ordered By: Dr. Edwards on 04-09-2023 Hematocrit (Bld) [Volume fraction] 40.8 % 40-54 [facility] - Chemistry and C hemistry - challengeOrdered By: Dr. Edwards on 04-09-2023 ALP [Catalytic activity/Vol] 84 U/L 45-117 [facility] ALT [Catalytic activity/Vol] 19 U/L 16-61 [facility] CO2 [Moles/Vol] 28.0 mmol/L 21.0-32.0 [facility] Globulin (S) [Mass/Vol] 5.2 g/dL 2.2-4.2 [facility] Urea nitrogen/Creatinine [Mass ratio] 12.9 mg/mg 10-20 [facility] - Hematology and Cell countsOrdered By: Dr. Edwards on 04-09-2023 Erythrocyte distribution width (RBC) [Entitic vol] 39.9 fL 35.1-43.9 [facility] Erythrocyte distribution width (RBC) [Ratio] 12.1 % 11.6-14.6 [facility] Immature granulocytes/100 WBC (Bld) 2.600 % 0.0-0.9 [facility] Comment on above: IG% - Immature Granu locytes (promyelocytes, myelocytes and metamyelocytes) > 1% indicates that a LEFT SHIFT is Present. MCH (RBC) [Entitic mass] 29.8 pg 27.0-32.0 [facility] Nucleated RBC/100 WBC (Bld) [Ratio] 0 % 0-5 [facility] MCHC Auto (RBC) [Mass/Vol]Or dered By: Dr. Edwards on 04-09-2023 MCHC (RBC) [Mass/Vol] 32.8 g/dL 32-36 [facility] No Panel InformationOrdered By: Dr. Edwards on 04-09-2023 Estimated GFR (MDRD) Amer 63 mL/min >60 [facility] Comment on above: GFR Calc Estimated GFR (MDRD) Non-Af Amer 52 mL/min >60 [facility] Comment on above: Non- GFR Calc Platelets bldOrdered By: Dr. Edwards on 04-09-2023 Platelets (Bld) [#/Vol] 471 10*3/uL 150-450 [facility] Serum or plasma albumin loretta urement (mass/volume)Ordered By: Dr. Edwards on 04-09-2023 Albumin [Mass/Vol] 2.9 g/dL 3.2-5.[address] [facility] Serum or plasma albumin/glob ulin mass ratioOrdered By: Dr. Edwards on 04-09-2023 Albumin/Globulin [Mass ratio] 0.6 {ratio} 0.9-2.4 [facility] Serum or plasma calcium loretta urement (mass/volume)Ordered By: Dr. Edwards on 04-09-2023 Calcium [Mass/Vol] 9.5 mg/dL 8.5-10.[address] [facility] Serum or plasma creatinine m easurement (mass/volume)Ordered By: Dr. Edwards on 04-09-2023 Creatinine [Mass/Vol] 1.39 mg/dL 0.70-1.30 [facility] Comment on above: The validity of the calculated GFR & GFRAA in patients over 70 years has not been determined. Clinical correlation is essential. Serum or plasma urea nitroge n measurement (mass/volume)Ordered By: Dr. Edwards on 04-09-2023 Urea nitrogen [Mass/Vol] 18 mg/dL 7-18 [facility] Thin prep Papanicolaou smear with manual screeningOrdered By: Dr. Edwards on 04-09-2023 Thin prep Papanicolaou smear with manual screening 16 U/L 15-37 [facility] Thin prep Papanicolaou smear with manual screening 6 5-15 [facility] Whole blood hemoglobin A1c/t otal hemoglobin ratio (mass fraction)Ordered By: Dr. Edwards on 04-09-2023 HbA1c (Bld) [Mass fraction] 8.7 % 3.8-5.6 [facility] Comment on above: Normal < 5.7 % Predi abetic 5.7 - 6.4 % Diabetic >or= 6.5 % Please note range changes. Absolute lymphocyte counton 08-20-2022 Lymphocytes Auto (Unsp spec) [#/Vol] 1.68 10*3/uL 0.83-4.51 [facility] Work Phone: Basophil percentageon 2021 Basophils/100 WBC (Bld) 0.9 % 0-1 [facility] Work Phone: Bilirubin [Mass/Vol] 0.50 mg/dL 0.20-1.00 [facility] Work Phone: Comment on above: For patients on eltr ombopag therapy, use of Dim[place] TBIL is not recommended. Chloride [Moles/Vol] 102 mmol/L 98-107 [facility] Work Phone: Cholesterol [Mass/Vol] 188 mg/dL <200 [facility] Work Phone: Comment on above: <200 mg/dL Desirable 200-240 mg/dL Borderline >240 mg/dL High Risk Eosinophils/100 WBC (Bld) 2.2 % 0-5 [facility] Work Phone: Glucose [Mass/Vol] 154 mg/dL 74-[address] [facility] Work Phone: Comment on above: Fasting Glucose resu lt greater than or equal to 126 mg/dL suggests DIABETES MELLITUS per A.D.A. criteria. Neutrophils (Bld) [#/Vol] 4.0 10*3/uL 2.0-7.7 [facility] Work Phone: Neutrophils/100 WBC (Bld) 61.2 % 47-70 [facility] Work Phone: Potassium [Moles/Vol] 3.8 mmol/L 3.5-5.1 [facility] Work Phone: Protein [Mass/Vol] 7.3 g/dL 6.4-8.[address] [facility] Work Phone: Sodium [Moles/Vol] 139 mmol/L 136-[address] [facility] Work Phone: Triglyceride [Mass/Vol] 343 mg/dL <199 [facility] Work Phone: Comment on above: The drugs N-Acetylcy steine and Metamizole may falsely depress this assay.Serum Triglycerides Reference Interval Normal <150 mg/dL Borderline high 150 - 199 mg/dL High 200 - 499 mg/dL Very High > or = 500 mg/dL WBC (Bld) [#/Vol] 6.5 10*3/uL 4.4-11.[address] [facility] Work Phone: Blood erythrocytes count (nu mber/volume)on 08-20-2022 RBC (Bld) [#/Vol] 4.80 10*6/uL 4.6-6.2 [facility] Work Phone: Blood hemoglobin measurement (mass/volume)on 08-20-2022 Hemoglobin (Bld) [Mass/Vol] 14.6 g/dL 13.0-16.5 [facility] Work Phone: Blood lymphocytes/100 leukoc yteson 08-20-2022 Lymphocytes/100 WBC (Bld) 26.0 % 19-41 [facility] Work Phone: Blood monocytes/100 leukocyt eson 08-20-2022 Monocytes/100 WBC (Bld) 9.4 % 0-10 [facility] Work Phone: Blood platelet mean volumeon 08-20-2022 Platelet mean volume (Bld) [Entitic vol] 9.1 fL 6.2-12.0 [facility] Work Phone: Determination of erythrocyte mean corpuscular volume (MCV)on 08-20-2022 MCV (RBC) [Entitic vol] 90.8 fL 80-94 [facility] Work Phone: Hematocrit Auto (Bld) [Volum e fraction]on 08-20-2022 Hematocrit (Bld) [Volume fraction] 43.6 % 40-54 [facility] Work Phone: Laboratory - Chemistry and C hemistry - challengeon 08-20-2022 ALP [Catalytic activity/Vol] 62 U/L 45-117 [facility] Work Phone: ALT [Catalytic activity/Vol] 33 U/L 16-61 [facility] Work Phone: CO2 [Moles/Vol] 27.0 mmol/L 21.0-32.0 [facility] Work Phone: [phone] Globulin (S) [Mass/Vol] 3.6 g/dL 2.2-4.2 [facility] Work Phone: [phone] Urea nitrogen/Creatinine [Mass ratio] 16.1 mg/mg 10-20 [facility] Work Phone: [phone] Laboratory - Hematology and Cell countson 08-20-2022 Erythrocyte distribution width (RBC) [Entitic vol] 43.2 fL 35.1-43.9 [facility] Work Phone: [phone] Erythrocyte distribution width (RBC) [Ratio] 12.9 % 11.6-14.6 [facility] Work Phone: [phone] Immature granulocytes/100 WBC (Bld) 0.300 % 0.0-0.9 [facility] Work Phone: Comment on above: IG% - Immature Granu locytes (promyelocytes, myelocytes and metamyelocytes) > 1% indicates that a LEFT SHIFT is Present. MCH (RBC) [Entitic mass] 30.4 pg 27.0-32.0 [facility] Work Phone: [phone] Nucleated RBC/100 WBC (Bld) [Ratio] 0 % 0-5 [facility] Work Phone: [phone] MCHC Auto (RBC) [Mass/Vol]on 08-20-2022 MCHC (RBC) [Mass/Vol] 33.5 g/dL 32-36 [facility] Work Phone: No Panel Informationon 08-20 Estimated GFR (MDRD) Amer 76 mL/min >60 [facility] Work Phone: Comment on above: GFR Calc Estimated GFR (MDRD) Non-Af Amer 63 mL/min >60 [facility] Work Phone: Comment on above: Non- GFR Calc Urine Microalbumin/Creatinine Ratio 93.2 mg/g CRE <30 [facility] Work Phone: Platelets bldon 08-20-2022 Platelets (Bld) [#/Vol] 207 10*3/uL 150-450 [facility] Work Phone: Serum or plasma albumin loretta urement (mass/volume)on 08-20-2022 Albumin [Mass/Vol] 3.7 g/dL 3.2-5.[address] [facility] Work Phone: Serum or plasma albumin/glob ulin mass ratioon 08-20-2022 Albumin/Globulin [Mass ratio] 1.0 {ratio} 0.9-2.4 [facility] Work Phone: Serum or plasma calcium loretta urement (mass/volume)on 08-20-2022 Calcium [Mass/Vol] 9.5 mg/dL 8.5-10.[address] [facility] Work Phone: Serum or plasma cholesterol in HDL measurement (mass/volume)on 08-20-2022 Cholesterol in HDL [Mass/Vol] 36 mg/dL >40 [facility] Work Phone: Comment on above: The drugs N-Acetylcy steine and Metamizole may falsely depress this assay. Reference Range HDL <40 mg/dL Low HDL Cholesterol HDL >or= 60 mg/dL High HDL Cholesterol Serum or plasma cholesterol in VLDL measurement (mass/volume)on 08-20-2022 Cholesterol in VLDL [Mass/Vol] 69 mg/dL 5-40 [facility] Work Phone: Serum or plasma creatinine m easurement (mass/volume)on 08-20-2022 Creatinine [Mass/Vol] 1.18 mg/dL 0.70-1.30 [facility] Work Phone: Comment on above: The validity of the calculated GFR & GFRAA in patients over 70 years has not been determined. Clinical correlation is essential. Serum or plasma low density lipoprotein (LDL) cholesterol measurement (mass/volume)on 08-20-2022 Cholesterol in LDL [Mass/Vol] 83 mg/dL 0-130 [facility] Work Phone: Serum or plasma urea nitroge n measurement (mass/volume)on 08-20-2022 Urea nitrogen [Mass/Vol] 19 mg/dL 7-18 [facility] Work Phone: Thin prep Papanicolaou smear with manual screeningon 08-20-2022 Thin prep Papanicolaou smear with manual screening 20 U/L 15-37 [facility] Work Phone: Thin prep Papanicolaou smear with manual screening 10 5-15 [facility] Work Phone: Thin prep Papanicolaou smear with manual screening 79.9 mg/L NO RANGE EST. [facility] Work Phone: Urine creatinine measurement (mass/volume)on 08-20-2022 Creatinine (U) [Mass/Vol] 85.70 mg/dL NO RANGE EST. [facility] Work Phone: Whole blood hemoglobin A1c/t otal hemoglobin ratio (mass fraction)on 08-20-2022 HbA1c (Bld) [Mass fraction] 7.0 % 3.8-5.6 [facility] Work Phone: Comment on above: Normal < 5.7 % Predi abetic 5.7 - 6.4 % Diabetic >or= 6.5 % Please note range changes. Wound Culture/Stainon 2020 Wound Culture/Stain Specimen Desc: Wound THIRD WEB SPACE RIGHT HAND Sp. Request/Comment: SWB Smear Result No organisms seen Culture Result Few skin tylor Report Status [id number] FINAL Normal [facility] Vital Signs Date Time Vital Sign Value Performing Clinician Faci lity 06-17-2023 06:31-0400 Body height 175.[address] Camryn Edwarsd Work Phone: [facility] 06-17-2023 06:31-0400 Body mass index (BMI) [Ratio] 28 kg/m2 Dr. Camryn Edwards Work Phone: [facility] 06-17-2023 06:31-0400 Body temperature 96.2 [degF] Dr. Camryn Edwards Work Phone: [facility] 06-17-2023 06:31-0400 Body weight 86.[address] Camryn Edwards Work Phone: [facility] 06-17-2023 06:31-0400 Diastolic blood pressure 74 mm[Hg] Dr. Camryn Edwards Work Phone: [facility] 06-17-2023 06:31-0400 Heart rate 60 /min Dr. Camryn Edwards Work Phone: [facility] 06-17-2023 06:31-0400 Respiratory rate 18 /min Dr. Camryn Edwards Work Phone: [facility] 06-17-2023 06:31-0400 SaO2% (BldA) [Mass fraction] 97 % Dr. Camryn Edwards Work Phone: [facility] 06-17-2023 06:31-0400 Systolic blood pressure 126 mm[Hg] Dr. Camryn Edwards Work Phone: [facility] 05-04-2023 07:22-0400 Body mass index (BMI) [Ratio] 28.8 kg/m2 Dr. Camryn Edwards Work Phone: [facility] 05-04-2023 07:22-0400 Body temperature 97.6 [degF] Dr. Camryn Edwards Work Phone: [facility] 05-04-2023 07:22-0400 Body weight 88.[address] Camryn Edwards Work Phone: [facility] 05-04-2023 07:22-0400 Diastolic blood pressure 74 mm[Hg] Dr. Camryn Edwards Work Phone: [facility] 05-04-2023 07:22-0400 Heart rate 80 /min Dr. Camryn Edwards Work Phone: [facility] 05-04-2023 07:22-0400 Respiratory rate 16 /min Dr. Camryn Edwards Work Phone: [facility] 05-04-2023 07:22-0400 SaO2% (BldA) [Mass fraction] 97 % Dr. Camryn Edwards Work Phone: [facility] 05-04-2023 07:22-0400 Systolic blood pressure 117 mm[Hg] Dr. Camryn Edwards Work Phone: [facility] 04-24-2023 12:46-0400 Diastolic blood pressure 65 mm[Hg] [facility] 04-24-2023 12:46-0400 Heart rate 72 /min [facility] 04-24-2023 12:46-0400 Respiratory rate 18 /min [facility] 04-24-2023 12:46-0400 SaO2% (BldA) [Mass fraction] 97 % [facility] 04-24-2023 12:46-0400 Systolic blood pressure 113 mm[Hg] [facility] 04-24-2023 10:11-0400 Inhaled oxygen flow rate 2 L/min [facility] 04-24-2023 09:07-0400 Body height 175.26 cm [facility] 04-24-2023 09:07-0400 Body mass index (BMI) [Ratio] 29.5 kg/m2 [facility] 04-24-2023 09:07-0400 Body temperature 97.4 [degF] [facility] 04-24-2023 09:07-0400 Body weight 90.71 kg [facility] Encounters Encounter Date Encounter Type Care Provider Facility Start: 06-22-2025 ambulatory [facility] Facility: [facility] Start: 05-08-2025 ambulatory [facility] Facility: [facility] Start: 02-23-2024 End: 02-23-2024 ambulatory [facility] Work Phone: Start: 02-23-2024 End: 02-23-2024 [facility] Start: 02-17-2024 End: 02-17-2024 ambulatory [facility] Work Phone: Start: 02-17-2024 End: 02-17-2024 [facility] Start: 02-05-2024 End: 02-05-2024 ambulatory [facility] Work Phone: Start: 02-05-2024 End: 02-05-2024 [facility] [place] Work Phone: Start: 02-01-2024 End: 02-01-2024 ambulatory [facility] Work Phone: Start: 02-01-2024 End: 02-01-2024 Patient encounter procedure [facility] Start: 09-14-2023 End: 09-14-[address] Camryn Edwards Work Phone: [facility] Work Phone: Start: 09-14-2023 End: 09-14-[address] Camryn Edwards Work Phone: [facility] [place] Work Phone: Start: 06-17-2023 End: 06-17-[address] Camryn Edwards Work Phone: [place] [facility] Work Phone: Start: 06-15-2023 End: 06-15-[address] Camryn Edwards Work Phone: [facility] Work Phone: Start: 06-15-2023 End: 06-15-[address] Camryn Edwards Work Phone: [facility] Work Phone: Start: 05-04-2023 End: 05-04-[address] Cam[facility] Work Phone: Start: 04-24-2023 End: 04-24-2023 Patient encounter procedure [facility] Start: 04-15-2023 End: 04-15-2023 ambulatory [facility] Work Phone: Start: 04-15-2023 End: 04-15-2023 Patient encounter procedure [facility] Start: 04-13-2023 End: 04-13-2023 ambulatory [facility] Work Phone: Start: 04-13-2023 End: 04-13-2023 [facility] Start: 04-09-2023 End: 04-09-2023 ambulatory [facility] Work Phone: Start: 04-09-2023 End: 04-09-2023 [facility] Start: 08-20-2022 End: 08-20-2022 ambulatory [facility] Work Phone: Start: 08-20-2022 End: 08-20-2022 Patient encounter procedure [facility] Start: 01-07-2021 End: 01-07-2021 Patient encounter procedure Franklin Butterfield Work Phone: [facility] Start: 01-07-2021 Results Only Franklin Butterfield Work Phone: [facility] Department Procedures Date Procedure Procedure Detail Performing Clinician Start: 02-05-2024 Plain chest X-ray Start: 06-15-2023 CT of chest without contrast Dr. Camryn Edwards Work Phone: Start: 04-24-2023 Plain chest X-ray Start: 04-24-2023 Plain chest X-ray Start: 04-24-2023 Biopsy/Inj or Needle Placement Start: 04-15-2023 CT of chest without contrast Start: 04-13-2023 Plain chest X-ray Start: 04-09-2023 Plain chest X-ray Start: 01-07-2021 WOUND CULTURE AND GR AM STAIN Franklin Butterfield Work Phone: Plan of Treatment Date Care Activity Detail Author Start: 02-05-2024 Plain chest X-ray Chest PA and Lateral [facility] Start: 02-05-2024 XR Chest PA and Lateral [facility] Start: 04-24-2023 CORE NDL BX LNG/MED PERQ CORE NDL BX LNG/MED PERQ [facility] Start: 04-24-2023 Following clinical pathway protocol [facility] Start: 04-24-2023 Catheterization [facility] vein [facility] Start: 04-24-2023 Oxygen therapy [facility] Start: 04-24-2023 Patient discharge [facility] Start: 04-24-2023 Vital signs measurements [facility] Start: 04-13-2023 Viral nucleic acid assay [facility] Antibody to lupus [place] protein measurement [facility] Antibody to SS-A measurement [facility] Bacteria identified Cx Nom (Wound) WOUND CULTURE AND GRAM STAIN Microbiology Routine 01/07/2021 10:05 PM EST [facility] Centromere protein B Ab [Units/volume] in Serum [facility] Chromatin Ab [Units/volume] in Serum or Plasma [facility] Cyclic citrullinated peptide IgG Ab [Units/volume] in Serum or Plasma [facility] DNA double strand Ab [Units/volume] in Serum [facility] Nata-1 extractable nuc lear Ab [Units/volume] in Serum [facility] Nuclear Ab [Presence ] in Serum [facility] Patient Education RAD RN Dischar ge Instructions Needle Biopsy: Lung RAD RN Procedural Sedation [facility] Work Phone: Patient referral [facility] Work Phone: 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 [facility] SARS-CoV-2 (COVID-19 ) Ag [Presence] in Respiratory specimen by Rapid immunoassay [facility] SCL-70 extractable n uclear Ab [Units/volume] in Serum by Immunoassay [facility] [place] extractable nu clear Ab [Presence] in Serum [facility] Immunizations Immunization Date Immunization Notes Care Provider Fa cility 09-30-2016 pneumococcal polysaccharide vaccine, 23 valent [facility] Payers Date Payer Category Payer Self-pay [id number] 2015 Private Health Insurance [id number] 2007 Medicare [id number] Unknown [id number] Unknown [id number] Social History Date Type Detail Facility Tobacco smoking stat NHIS Unknown if ever smoked [facility] Start: 1940 Sex Assigned At Not on file [facility] Start: 07-18-2020 End: 06-17-2023 Tobacco smoking status NHIS Unknown if ever smoked [facility] Start: 07-09-2020 Non-smoker [facility] Start: 1940 Sex Assigned At Male W [facility] Mental Status Date Assessment Result Facility 04-24-2023 Cognitive function Awake;Alert;Appropriat e [facility] Work Phone: Evaluation note Note Date & Type Note Facility Evaluation note No assessment information availa ble [facility] Work Phone: Evaluation note Note Date & Type Note Facility Evaluation note Diagnosis Onset Date Lung mass acute Lung mass acute [facility] Work Phone: Evaluation note Note Date & Type Note Facility Evaluation note Diagnosis Onset Date Lung mass acute [facility] Work Phone: Summary Purpose Family History No Family History Records Found Relationship Condition Age at Onset Recorded Date/T rhiannon father Malignant neoplasm of colon Unknown mother Cardiac disease Unknown Myocardial infarction Unknown Malignant neoplasm Unknown Advance Directives No Advanced Directives Records Found Advance Directive Response Recorded Date/ Time Living Will Yes July 09 0 12:05pm Power of Police Liaison Yes July 09 12:05pm Advance Directive Response Recorded Date/ Time Living Will Yes July 09 0 11:05am Power of Police Liaison Yes July 09 11:05am Chief Complaint and Reason for Visit Chief Complaint ADD XRAY- COUGH CHEST XRAY Chief Complaint ADD XRAY- COUGH CHEST XRAY SUSPECTED PNEUMONIA Chief Complaint ADD XRAY- COUGH CHEST XRAY SUSPECTED PNEUMONIA LEFT LUNG MASS Chief Complaint ADD XRAY- COUGH CHEST XRAY SUSPECTED PNEUMONIA LEFT LUNG MASS Abnormal CT scan LUNG CONSOLIDATION/MASS 6 wk FU Reason for Visit Lung mass Lung mass Chief Complaint LUNG CONSOLIDATION/M ASS 6 wk FU Reason for Visit Lung mass Additional Source Comments Source Comments (unrecognize d section and content) In the event this informatio n is protected by the Federal Confidentiality of Alcohol and Drug Abuse Patient Records regulations: The Federal rules restrict any use of the information to criminally investigate or prosecute any alcohol or drug abuse patient.[facility] (unrecognized sect ion and content) No Status Records FoundNo Status Records Found INFORMATION SOURCE (unrecogn ized section and content) DATE CREATED AUTHOR 01/13/2021 [facility] DATE CREATED AUTHOR AARTI WATERMAN 06/23/2025 [facility] Goals (unrecognized section and content) Goals may be documented in a n alternate sectionGoals may be documented in an alternate sectionGoals may be documented in an alternate sectionGoals may be documented in an alternate sectionGoals may be documented in an alternate sectionGoals may be documented in an alternate sectionGoals may be documented in an alternate sectionGoals may be documented in an alternate sectionGoals may be documented in an alternate sectionGoals may be documented in an alternate section Care Teams (unrecognized sec tion and content) Team Status: Active Member Role Status Dates Dr. Robin Hinson MD Family Provider Active ROSA Grover Primary Care Provider Active Team Status: Inactive Member Role Status Dates Dr. Camryn Edwards MD Primary Care Prov ider, Attending Provider, Referring Provider Active Team Status: Active Member Role Status Dates ROSA Grover Primary Care Provide r, Attending Provider, Referring Provider Active Team Status: Active Member Role Status Dates Dr. Robin Hinson MD Family Provider Active Dr. Camryn Edwards MD Primary Care Provider Active Team Status: Inactive Member Role Status Dates ROSA Grover Primary Care Provide r, Attending Provider, Referring Provider Active Team Status: Active Member Role Status Dates ROSA Grover Attending Provider, Referring Prov ider Active Dr. Camryn Edwards MD Primary Care Provider Active Team Status: Inactive Member Role Status Dates ROSA Grover Attending Provider, Referring Prov ider Active Dr. Camryn Edwards MD Primary Care Provider Active Team Status: Active Member Role Status Dates Dr. Camryn Edwards MD Primary Care Prov ider, Attending Provider, Referring Provider Active Team Status: Inactive Member Role Status Dates Dr. Camryn Edwards MD Primary Care Provider, Referrin g Provider Active Dr. Jeffery Noonan DO Attending Provider Active Team Status: Inactive Member Role Status Dates Dr. Camryn Edwards MD Primary Care Provider Active Dr. Jeffery Noonan DO Attending Provider, Referring Pro vider Active Team Status: Inactive Member Role Status Dates Dr. Camryn Edwards MD Primary Care Provider, Attendin g Provider Active Team Status: Active Member Role Status Dates Dr. Camryn Edwards MD Primary Care Provider Active Dr. Ino Morris DO Attending Provider, Referring P rovider Active Team Status: Inactive Member Role Status Dates Dr. Camryn Edwards MD Primary Care Provider Active Dr. Ino Morris DO Attending Provider, Qiana ramsay Active FOR RECORDS PERTAINING TO PATIENTS WHO ARE OR HAVE BEEN ENROLLED IN A CHEMICAL DEPENDENCY/SUBSTANCEABUSE PROGRAM, SOME INFORMATION MAY BE OMITTED. This clinical summary was aggregated from multiple sources. Caution should be exercised in using it in the provision of clinical care. This summary normalizes information from multiple sources, and as a consequence, information in this document may materially change the coding, format and clinical context of patient data. In addition, data may be omitted in some cases. CLINICAL DECISIONS SHOULD BE BASED ON THE PRIMARY CLINICAL RECORDS. [employer] [facility]. provides no warranty or guarantee of the accuracy or completeness of information in this document.
[2025-07-28 10:41] LABS: Hematocrit 41.6 % (40-54); Hemoglobin 14.5 g/dL (13.0-16.5); Immature Granulocytes Count 0.040 X10^3/uL (0.0-0.0); Mean Corp Hgb Conc 34.9 g/dL (32-36); Mean Corpuscular Volume 88.9 fL (80-94); Mean Platelet Vol. 9.4 fl (6.2-12.0); NRBC Flagged by Analyzer 0 % (0-5); Platelet Count 235 K/mm3 (150-450); RBC Distribution Width CV 12.8 % (11.6-14.6); RBC Distribution Width SD 41.5 fl (35.1-43.9); Red Blood Count 4.68 M/mm3 (4.6-6.2); White Blood Count 6.9 K/mm3 (4.4-11.0)
[2025-07-28 10:50] LABS: AST(SGOT) 26 U/L (<=37); Alanine Aminotransfer ALT/SGPT 23 U/L (<=46); Albumin, Serum 4.2 g/dL (3.4-4.8); Alkaline Phosphatase 79 U/L (40-129); Anion Gap 13 (5-15); BUN 17 mg/dL (4-19); BUN/Creat Ratio 16.5 RATIO (10-20); Calcium,Total 9.6 mg/dL (7.6-11.0); Carbon Dioxide 25.5 mmol/L (21.0-32.0); Chloride 99 mmol/L (98-108); Globulin 2.8 g/dL (2.2-4.2); Glucose 170 mg/dL (70-99); Potassium 3.9 mmol/L (3.3-5.1)
[2025-07-28 11:09] LABS: Creatinine, Urine (random) 68.80 mg/dL (39.00-259.00); Microalbumin,Random Urine 88.7 mg/L (<20 mg/L)
[2025-07-28 11:34] LABS: CRP 4.43 mg/L (0.0-3.0); Cholesterol 183 mg/dL (<=200); Low Density Lipoprotein Calc. 80 mg/dL; Triglycerides 340 mg/dL; Very Low Density Lipoprotein 68 mg/dL (5-40); cholesterol:hdl ratio screen 5.18
== END | disposition home or self-care (01) ==
LOC: MTLAB 08:11
PROVIDERS: PCP Family Medicine; Referring Provider Family Medicine; Visit Provider Family Medicine
DX: E11.9 Type 2 diabetes mellitus without complications (principal); I10 Essential (primary) hypertension
CPT/HCPCS: 36415; 80053; 80061; 82043; 82570; 83036; 85025; 85652; 86140